=== PATIENT | male | born 1970 | race Two or more races ===

== ENCOUNTER 2018-01-27 08:21 | Inpatient (IN) | payer MEDICAID ==
[2018-01-24 11:51] LABS: ALANINE AMINOTRANSFERASE 24 U/L (12-78); ALBUMIN 3.8 g/dL (3.4-5.0); ANION GAP 10 mmol/L (5-15); CALCIUM 8.5 mg/dL (8.5-10.1); CHLORIDE 108 mmol/L (98-107); CREATININE 1.29 mg/dL (0.7-1.3)
[2018-01-24 11:52] LABS: MEAN CORPUSCULAR HEMOGLOBIN 33.3 pg (27.5-34.5); MEAN CORPUSCULAR HGB CONC 33.7 g/dL (33.2-36.2); MEAN CORPUSCULAR VOLUME 98.6 fL (81-97); MEAN PLATELET VOLUME 9.6 fL (7.4-10.4); PLATELET COUNT 171 x10^3/uL (130-400); RED BLOOD COUNT 4.75 x10^6/uL (4.38-5.82); RED CELL DISTRIBUTION WIDTH 16.1 % (9.4-14.8)
[2018-01-24 11:53] LABS: ALKALINE PHOSPHATASE 74 U/L (45-117); BILIRUBIN,TOTAL 2.2 mg/dL (0.2-1.0); TOTAL PROTEIN 6.8 g/dL (6.4-8.2)
[2018-01-24 12:22] LABS: MD YES
[2018-01-24 12:54] LABS: EOS#(MANUAL) 0.08 x10^3/uL (0.0-0.4); EOS% (MANUAL) 1 % (1-7); LYMPH#(MANUAL) 1.97 x10^3/uL (1-3.4); LYMPHS% (MANUAL) 24 % (22-44); MONOS#(MANUAL) 0.41 x10^3/uL (0.3-2.7); MONOS% (MANUAL) 5 % (2-9); SEG#(MANUAL) 5.74 x10^3/uL (1.8-6.8); SEGS% (MANUAL) 70 % (42-75)
[2018-01-24 12:55] LABS: <PLATELET ESTIMATE> ADEQUATE; <PLT MORPHOLOGY> NORMAL PLT MORPH; ANISOCYTOSIS 1+; ECHINOCYTES 1+
[2018-01-24 12:56] LABS: OVALOCYTES 2+
[~2018-01-27] VITALS: Ht 165.1 cm; Wt 103.9 kg
[~2018-01-27 08:21] MED LIST: ASPI-496 PO; CARV12.52 PO; FURO20TA3 PO; LISI-170 PO; METF500T17 PO; POTA10TA12 PO; RANI150T23 PO; SIMV10TA3 PO; SPIR25TA5 PO
[2018-01-27 08:53] VITALS: BP 109/79
[2018-01-27] MEDS ORDERED: SODIUM CHLORIDE 0.9% 1,000 ML IV SCH (09:01)
[2018-01-27] MEDS ORDERED: CEFAZOLIN PMX 1GM/50ML 50 ML IVPB ONE (09:30)
[2018-01-27] MEDS ORDERED: ONDANSETRON 2MG/ML, 2ML ONE (10:32)
[2018-01-27] MEDS ORDERED: SUCCINYLCHOLINE 20 MG/ML, 10ML ONE (10:32)
[2018-01-27] MEDS ORDERED: CEFAZOLIN 1,000 MG ONE (10:32)
[2018-01-27] MEDS ORDERED: FENTANYL PF 250 MCG/5ML ONE (12:50)
[2018-01-27] MEDS ORDERED: PROPOFOL 50 ML ONE ×2 (12:50→13:56)
[2018-01-27] MEDS ORDERED: MIDAZOLAM 1 MG/ML, 2ML ONE (12:50)
[2018-01-27] MEDS ORDERED: HOLD MEDICATION MC PRN (16:00)
[2018-01-27] MEDS ORDERED: ACETAMINOPHEN 325 MG TABLET PO PRN ×2 (16:00)
[2018-01-27] MEDS ORDERED: CEFAZOLIN PMX 1GM/50ML 50 ML IVPB SCH (16:00)
[2018-01-27] MEDS ORDERED: NALOXONE 0.4 MG/ML, 1ML ONE (16:28)
[2018-01-27] MEDS ORDERED: EPINEPHRINE 2 MG in SODIUM CHLORIDE 0.9% 248 ML IV PRN (16:30)
[2018-01-27] MEDS ORDERED: NALOXONE 0.4 MG/ML, 1ML IVPush ONE (17:00)
[2018-01-27] MEDS ORDERED: PROPOFOL 100 ML IV ONE (17:14)
[2018-01-27] MEDS ORDERED: PHENYLEPHRINE 10 MG/ML ONE (17:18)
[2018-01-27] MEDS ORDERED: EPINEPHRINE 4 MG in SODIUM CHLORIDE 0.9% 246 ML IV PRN (17:30)
[2018-01-27] MEDS ORDERED: PHENYLEPHRINE 10 MG in SODIUM CHLORIDE 0.9% 249 ML IV PRN (17:41)
[2018-01-27] MEDS: ALBUTEROL/IPRATROPIUM 2.5MG/0.5MG, 3 ML INLINE SCH ×2 (18:00→22:00)
[2018-01-27] MEDS ORDERED: DEXTROSE 4 GM TAB.CHEW PO PRN (18:00)
[2018-01-27] MEDS ORDERED: SENNOSIDES 8.8 MG/5 ML ORAL SOL NG PRN (18:00)
[2018-01-27] MEDS ORDERED: DEXTROSE 50%, 50ML SYRINGE IVPush PRN (18:00)
[2018-01-27] MEDS ORDERED: FENTANYL PF 100 MCG/2ML IVPush PRN (18:00)
[2018-01-27] MEDS ORDERED: LACTULOSE 20 GM/30 ML UDC NG PRN (18:00)
[2018-01-27] MEDS ORDERED: GLUCAGON 1 MG IM PRN (18:00)
[2018-01-27] MEDS ORDERED: BISACODYL 10 MG SUPP PR PRN (18:00)
[2018-01-27] MEDS ORDERED: PHARMACY MAY ADJ FOR RENAL FX MC SCH (18:00)
[2018-01-27] MEDS ORDERED: SENNA/DOCUSATE TABLET NG PRN (18:00)
[2018-01-27] MEDS ORDERED: LIDOCAINE-MPF 1%, 2ML ENDO PRN (18:00)
[2018-01-27 19:21] LABS: BASOPHILS # (AUTO) 0.03 x10^3/uL (0-0.1); BASOPHILS % (AUTO) 0 % (0-1); EOSINOPHILS % (AUTO) 1 % (1-7); LYMPHOCYTES # (AUTO) 1.29 x10^3/uL (1-3.4); LYMPHOCYTES % (AUTO) 12 % (22-44); MD NO; MEAN CORPUSCULAR HEMOGLOBIN 33.1 pg (27.5-34.5); MEAN CORPUSCULAR HGB CONC 33.5 g/dL (33.2-36.2); MEAN CORPUSCULAR VOLUME 98.6 fL (81-97); MEAN PLATELET VOLUME 9.4 fL (7.4-10.4); MONOCYTES % (AUTO) 6 % (2-9); NEUTROPHILS # (AUTO) 8.55 x10^3/uL (1.8-6.8); NEUTROPHILS % (AUTO) 81 % (42-75); PLATELET COUNT 143 x10^3/uL (130-400); RED BLOOD COUNT 4.71 x10^6/uL (4.38-5.82); RED CELL DISTRIBUTION WIDTH 15.9 % (9.4-14.8)
[2018-01-27 19:28] LABS: INTERNATIONAL NORMALIZED RATIO 1.39 (0.93-1.1); PROTHROMBIN TIME 14.5 Seconds (9.6-11.5)
[2018-01-27 19:29] LABS: ANION GAP 11 mmol/L (5-15); CALCIUM 7.4 mg/dL (8.5-10.1); CHLORIDE 110 mmol/L (98-107); CREATININE 1.71 mg/dL (0.7-1.3)
[2018-01-27 19:31] LABS: TRIGLYCERIDES 105 mg/dL (50-200)
[2018-01-27] MEDS: SODIUM CHLORIDE 0.9% 1,000 ML IV SCH (19:54)
[2018-01-27] MEDS: CEFAZOLIN 1,000 MG in SODIUM CHLORIDE 0.9% 50 ML IVPB SCH (19:58)
[2018-01-27] MEDS ORDERED: MAGNESIUM SULFATE PMX 2GM/50ML 50 ML IV ONE (20:00)
[2018-01-27] MEDS: NOREPINEPHRINE 4 MG in SODIUM CHLORIDE 0.9% 246 ML IV PRN (20:19)
[2018-01-27 20:36] LABS: HEMOGLOBIN A1C 6.4 % (4.2-6.3)
[2018-01-27 20:44] LABS: FREE T4 (FREE THYROXINE) 1.41 ng/dL (0.76-1.46)
[2018-01-27] MEDS ORDERED: CARVEDILOL 12.5 MG TABLET PO SCH (21:00)
[2018-01-27] MEDS ORDERED: metFORMIN 500 MG TABLET PO SCH (21:00)
[2018-01-27] MEDS ORDERED: FUROSEMIDE 20 MG TABLET PO SCH (21:00)
[2018-01-27] MEDS ORDERED: FAMOTIDINE 20 MG TABLET PO SCH (21:00)
[2018-01-27] MEDS ORDERED: LISINOPRIL 20 MG TABLET PO SCH (21:00)
[2018-01-27] MEDS: INSULIN REGULAR 100 UNITS/ML, 3ML VIAL SQ-INSULIN SCH (21:00)
[2018-01-27] MEDS: SODIUM CHLORIDE FLUSH 10ML SYR IVF SCH ×2 (21:00→21:52)
[2018-01-27] MEDS: FAMOTIDINE 20 MG/2 ML IV SCH (22:01)
[2018-01-27] MEDS: SIMVASTATIN 10 MG TABLET PO SCH (22:01)
[2018-01-27 22:50] LABS: MICROSCOPIC INDICATED
[2018-01-27 22:56] LABS: CULTURE INDICATED? NO
[2018-01-27] MEDS: PROPOFOL 100 ML IV PRN (23:52)
[2018-01-28] MEDS ORDERED: PHENYLEPHRINE 20 MG in SODIUM CHLORIDE 0.9% 248 ML IV PRN (00:30)
[2018-01-28] MEDS: CEFAZOLIN 1,000 MG in SODIUM CHLORIDE 0.9% 50 ML IVPB SCH (01:58)
[2018-01-28] MEDS: ALBUTEROL/IPRATROPIUM 2.5MG/0.5MG, 3 ML INLINE SCH ×7 (02:00→21:55)
[2018-01-28 04:16] LABS: BASOPHILS # (AUTO) 0.04 x10^3/uL (0-0.1); BASOPHILS % (AUTO) 0 % (0-1); EOSINOPHILS # (AUTO) 0.02 x10^3/uL (0-0.4); EOSINOPHILS % (AUTO) 0 % (1-7); LYMPHOCYTES # (AUTO) 1.39 x10^3/uL (1-3.4); LYMPHOCYTES % (AUTO) 9 % (22-44); MD NO; MEAN CORPUSCULAR HEMOGLOBIN 32.6 pg (27.5-34.5); MEAN CORPUSCULAR HGB CONC 33.3 g/dL (33.2-36.2); MEAN CORPUSCULAR VOLUME 97.8 fL (81-97); MEAN PLATELET VOLUME 9.5 fL (7.4-10.4); MONOCYTES # (AUTO) 0.81 x10^3/uL (0.2-0.8); MONOCYTES % (AUTO) 5 % (2-9); NEUTROPHILS % (AUTO) 86 % (42-75); PLATELET COUNT 123 x10^3/uL (130-400); RED BLOOD COUNT 4.41 x10^6/uL (4.38-5.82); RED CELL DISTRIBUTION WIDTH 15.3 % (9.4-14.8)
[2018-01-28 04:21] LABS: CALCIUM 7.8 mg/dL (8.5-10.1); CHOLESTEROL, TOTAL 57 mg/dL (140-239); CREATININE 1.79 mg/dL (0.7-1.3); TRIGLYCERIDES 98 mg/dL (50-200); VLDL CHOLESTEROL 20 mg/dL (0-25)
[2018-01-28 04:44] VITALS: BP 120/88
[2018-01-28 04:49] LABS: ANION GAP 17 mmol/L (5-15); CHLORIDE 107 mmol/L (98-107); CHOL/HDL RATIO 2.6; HDL CHOL % 39 % (26-37); HDL CHOLESTEROL (DIRECT) 22 mg/dL (40-60); LDL CHOLESTEROL,CALCULATED 15 mg/dL (54-169); LDL/HDL RATIO 0.7 (0.5-3.0)
[2018-01-28] MEDS: PROPOFOL 100 ML IV PRN ×4 (05:48→18:06)
[2018-01-28] MEDS: FAMOTIDINE 20 MG/2 ML IV SCH ×2 (05:57→18:10)
[2018-01-28] MEDS: INSULIN REGULAR 100 UNITS/ML, 3ML VIAL SQ-INSULIN SCH ×4 (07:00→21:00)
[2018-01-28] MEDS: SODIUM CHLORIDE FLUSH 10ML SYR IVF SCH ×3 (08:12→21:13)
[2018-01-28] MEDS ORDERED: FENTANYL PF 2,500 MCG in SODIUM CHLORIDE 0.9% 200 ML IV PRN (09:00)
[2018-01-28] MEDS: ASPIRIN 81 MG TABLET EC PO SCH (09:00)
[2018-01-28] MEDS ORDERED: KLOR PO SCH (09:00)
[2018-01-28] MEDS ORDERED: SPIRONOLACTONE 25 MG TABLET PO SCH (09:00)
[2018-01-28] MEDS ORDERED: MIDAZOLAM HCL 50 MG in SODIUM CHLORIDE 0.9% 240 ML IV PRN (10:30)
[2018-01-28] MEDS: NOREPINEPHRINE 4 MG in SODIUM CHLORIDE 0.9% 246 ML IV PRN (10:36)
[2018-01-28] MEDS ORDERED: LIDOCAINE 1%, 20ML ONE (11:36)
[2018-01-28] MEDS ORDERED: HEPARIN 1,000 UNITS/ML, 10ML ONE (11:36)
[2018-01-28] MEDS ORDERED: MIDAZOLAM 1 MG/ML, 5ML ONE (11:47)
[2018-01-28] MEDS ORDERED: HEPARIN 25,000 UNITS/500ML PMX 500 ML IV SCH (12:26)
[2018-01-28] MEDS ORDERED: HEPARIN 25,000 UNITS in DEXTROSE 10% 500 ML IV SCH (12:26)
[2018-01-28] MEDS ORDERED: HEPARIN 25,000 UNITS in DEXTROSE 20% 500 ML IV SCH (12:26)
[2018-01-28 14:07] LABS: PLATELET COUNT 106 x10^3/uL (130-400)
[2018-01-28 14:18] LABS: ANION GAP 9 mmol/L (5-15); CALCIUM 7.8 mg/dL (8.5-10.1); CHLORIDE 114 mmol/L (98-107); CREATININE 1.53 mg/dL (0.7-1.3); INTERNATIONAL NORMALIZED RATIO 1.69 (0.93-1.1); PROTHROMBIN TIME 17.6 Seconds (9.6-11.5)
[2018-01-28 14:22] LABS: TROPONIN I 0.555 ng/mL (0.000-0.045)
[2018-01-28] MEDS ORDERED: MAGNESIUM SULFATE 4 GM in SODIUM CHLORIDE 0.9% 100 ML IV ONE (15:30)
[2018-01-28] MEDS: SODIUM CHLORIDE 0.9% 1,000 ML IV SCH (15:40)
[2018-01-28] MEDS ORDERED: SODIUM CHLORIDE 0.9%, 250ML IVBOLUS ONE (16:30)
--- NOTE | 2018-01-28 18:10 | NUR ---
TF RECOMMENDATION IF NEEDED: Promote at 65 ml/hr on propofol; promote at 85 ml/hr off propofol Addendum: 01/28/18 at [address] Amended: Links added.
[2018-01-28] MEDS: SIMVASTATIN 10 MG TABLET PO SCH (21:00)
[2018-01-29] MEDS: PROPOFOL 100 ML IV PRN ×5 (00:06→21:19)
[2018-01-29] MEDS: ALBUTEROL/IPRATROPIUM 2.5MG/0.5MG, 3 ML INLINE SCH ×6 (02:20→22:34)
[2018-01-29 05:14] LABS: MEAN CORPUSCULAR HEMOGLOBIN 33.2 pg (27.5-34.5); MEAN CORPUSCULAR HGB CONC 33.8 g/dL (33.2-36.2); MEAN CORPUSCULAR VOLUME 98.1 fL (81-97); RED BLOOD COUNT 3.32 x10^6/uL (4.38-5.82); RED CELL DISTRIBUTION WIDTH 15.9 % (9.4-14.8)
[2018-01-29 05:31] LABS: ANION GAP 9 mmol/L (5-15); CALCIUM 6.9 mg/dL (8.5-10.1); CHLORIDE 112 mmol/L (98-107)
[2018-01-29 05:37] LABS: CREATININE 1.31 mg/dL (0.7-1.3)
[2018-01-29 05:46] LABS: BASOPHILS # (AUTO) 0.05 x10^3/uL (0-0.1); BASOPHILS % (AUTO) 1 % (0-1); EOSINOPHILS # (AUTO) 0.26 x10^3/uL (0-0.4); EOSINOPHILS % (AUTO) 3 % (1-7); LYMPHOCYTES # (AUTO) 1.08 x10^3/uL (1-3.4); LYMPHOCYTES % (AUTO) 11 % (22-44); MD MORPH REVIEW ONLY; MEAN PLATELET VOLUME 9.7 fL (7.4-10.4); MONOCYTES # (AUTO) 0.77 x10^3/uL (0.2-0.8); MONOCYTES % (AUTO) 8 % (2-9); NEUTROPHILS # (AUTO) 7.31 x10^3/uL (1.8-6.8); NEUTROPHILS % (AUTO) 77 % (42-75); PLATELET COUNT 84 x10^3/uL (130-400)
[2018-01-29 05:52] LABS: <PLATELET ESTIMATE> DECREASED; <PLT MORPHOLOGY> NORMAL PLT MORPH; ANISOCYTOSIS 1+; ECHINOCYTES 1+; OVALOCYTES 2+
[2018-01-29] MEDS: FAMOTIDINE 20 MG/2 ML IV SCH ×2 (06:18→19:23)
[2018-01-29] MEDS: INSULIN REGULAR 100 UNITS/ML, 3ML VIAL SQ-INSULIN SCH ×4 (07:00→20:20)
[2018-01-29] MEDS ORDERED: CEFAZOLIN 2,000 MG in SODIUM CHLORIDE 0.9% 50 ML IV STA (07:12)
[2018-01-29] MEDS ORDERED: CALCIUM CHLORIDE 13.6 MEQ in SODIUM CHLORIDE 0.9% 100 ML IV ONE (08:00)
[2018-01-29] MEDS ORDERED: FUROSEMIDE 20 MG/2 ML IV ONE (09:00)
[2018-01-29] MEDS: ASPIRIN 81 MG TABLET EC PO SCH (09:26)
[2018-01-29] MEDS: POTASSIUM CHLORIDE 10% 40 MEQ/30 ML UDC PO SCH ×2 (09:26→20:12)
[2018-01-29] MEDS: SODIUM CHLORIDE 0.9% 1,000 ML IV SCH (09:27)
[2018-01-29] MEDS: NOREPINEPHRINE 4 MG in SODIUM CHLORIDE 0.9% 246 ML IV PRN (12:13)
[2018-01-29] MEDS: SIMVASTATIN 10 MG TABLET PO SCH (20:12)
[2018-01-30] MEDS: ALBUTEROL/IPRATROPIUM 2.5MG/0.5MG, 3 ML INLINE SCH ×2 (03:03→06:00)
[2018-01-30] MEDS: PROPOFOL 100 ML IV PRN (03:38)
[2018-01-30 04:39] LABS: MEAN CORPUSCULAR HEMOGLOBIN 32.9 pg (27.5-34.5); MEAN CORPUSCULAR HGB CONC 33.4 g/dL (33.2-36.2); MEAN CORPUSCULAR VOLUME 98.6 fL (81-97); RED BLOOD COUNT 3.36 x10^6/uL (4.38-5.82); RED CELL DISTRIBUTION WIDTH 15.8 % (9.4-14.8)
[2018-01-30 04:57] LABS: ANION GAP 8 mmol/L (5-15); CALCIUM 7.5 mg/dL (8.5-10.1); CHLORIDE 114 mmol/L (98-107); CREATININE 0.94 mg/dL (0.7-1.3); TRIGLYCERIDES 148 mg/dL (50-200)
[2018-01-30 05:03] LABS: TROPONIN I 0.152 ng/mL (0.000-0.045)
[2018-01-30 05:06] LABS: BASOPHILS # (AUTO) 0.04 x10^3/uL (0-0.1); BASOPHILS % (AUTO) 0 % (0-1); EOSINOPHILS # (AUTO) 0.46 x10^3/uL (0-0.4); EOSINOPHILS % (AUTO) 5 % (1-7); LYMPHOCYTES # (AUTO) 1.13 x10^3/uL (1-3.4); LYMPHOCYTES % (AUTO) 11 % (22-44); MD SCAN; MEAN PLATELET VOLUME 9.6 fL (7.4-10.4); MONOCYTES # (AUTO) 0.98 x10^3/uL (0.2-0.8); MONOCYTES % (AUTO) 10 % (2-9); NEUTROPHILS # (AUTO) 7.32 x10^3/uL (1.8-6.8); NEUTROPHILS % (AUTO) 74 % (42-75); PLATELET COUNT 86 x10^3/uL (130-400)
[2018-01-30] MEDS: FAMOTIDINE 20 MG/2 ML IV SCH ×2 (06:19→17:24)
[2018-01-30] MEDS: SODIUM CHLORIDE 0.9% 1,000 ML IV SCH (06:21)
[2018-01-30] MEDS: INSULIN REGULAR 100 UNITS/ML, 3ML VIAL SQ-INSULIN SCH ×4 (07:00→20:50)
[2018-01-30] MEDS ORDERED: MAGNESIUM SULFATE PMX 4GM/100M 100 ML IV ONE (08:00)
[2018-01-30] MEDS ORDERED: CALCIUM CHLORIDE 13.6 MEQ in SODIUM CHLORIDE 0.9% 100 ML IV ONE (08:00)
[2018-01-30] MEDS: CALCIUM CARBONATE 500 MG TAB.CHEW PO SCH ×3 (08:00→20:45)
[2018-01-30] MEDS ORDERED: RACEPINEPHRINE INH 2.25%, 0.5ML ONE (08:57)
[2018-01-30] MEDS: ASPIRIN 81 MG TABLET EC PO SCH (09:00)
[2018-01-30 12:11] LABS: HIT RESULT NEGATIVE (NEGATIVE)
[2018-01-30] MEDS ORDERED: ALBUTEROL/IPRATROPIUM 2.5MG/0.5MG, 3 ML NPPB PRN (12:30)
[2018-01-30] MEDS: SIMVASTATIN 10 MG TABLET PO SCH (20:46)
[2018-01-30] MEDS: ALBUTEROL/IPRATROPIUM 2.5MG/0.5MG, 3 ML NPPB SCH (20:50)
[2018-01-31 04:23] LABS: BASOPHILS # (AUTO) 0.18 x10^3/uL (0-0.1); BASOPHILS % (AUTO) 2 % (0-1); EOSINOPHILS # (AUTO) 0.39 x10^3/uL (0-0.4); EOSINOPHILS % (AUTO) 3 % (1-7); LYMPHOCYTES # (AUTO) 0.83 x10^3/uL (1-3.4); LYMPHOCYTES % (AUTO) 7 % (22-44); MD NO; MEAN CORPUSCULAR HEMOGLOBIN 33.1 pg (27.5-34.5); MEAN CORPUSCULAR HGB CONC 33.5 g/dL (33.2-36.2); MEAN CORPUSCULAR VOLUME 98.6 fL (81-97); MEAN PLATELET VOLUME 9.2 fL (7.4-10.4); MONOCYTES # (AUTO) 1.24 x10^3/uL (0.2-0.8); MONOCYTES % (AUTO) 11 % (2-9); NEUTROPHILS # (AUTO) 8.99 x10^3/uL (1.8-6.8); NEUTROPHILS % (AUTO) 77 % (42-75); O2 FLOW ROOM AIR L/min; PLATELET COUNT 112 x10^3/uL (130-400); RED BLOOD COUNT 3.31 x10^6/uL (4.38-5.82); RED CELL DISTRIBUTION WIDTH 15.4 % (9.4-14.8)
[2018-01-31 04:31] LABS: ANION GAP 9 mmol/L (5-15); CALCIUM 7.9 mg/dL (8.5-10.1); CHLORIDE 110 mmol/L (98-107); CREATININE 0.79 mg/dL (0.7-1.3)
[2018-01-31 04:46] LABS: TROPONIN I 0.126 ng/mL (0.000-0.045)
[2018-01-31] MEDS: FAMOTIDINE 20 MG/2 ML IV SCH ×2 (05:02→17:34)
[2018-01-31] MEDS: CALCIUM CARBONATE 500 MG TAB.CHEW PO SCH ×4 (05:02→20:42)
[2018-01-31] MEDS: SODIUM CHLORIDE 0.9% 1,000 ML IV SCH (05:02)
[2018-01-31] MEDS: INSULIN REGULAR 100 UNITS/ML, 3ML VIAL SQ-INSULIN SCH ×4 (06:36→20:47)
[2018-01-31] MEDS ORDERED: MAGNESIUM SULFATE 4 GM in SODIUM CHLORIDE 0.9% 100 ML IV ONE (09:00)
[2018-01-31] MEDS: ASPIRIN 81 MG TABLET EC PO SCH (09:26)
[2018-01-31] MEDS: FUROSEMIDE 10 MG/ML ORAL SOL PO SCH (09:27)
[2018-01-31] MEDS ORDERED: ERGOCALCIFEROL 50,000 UNIT CAPSULE PO SCH (11:30)
[2018-01-31] MEDS: ALBUTEROL/IPRATROPIUM 2.5MG/0.5MG, 3 ML NPPB SCH ×2 (12:22→21:46)
[2018-01-31] MEDS: SIMVASTATIN 10 MG TABLET PO SCH (20:43)
[2018-02-01] MEDS: CALCIUM CARBONATE 500 MG TAB.CHEW PO SCH ×4 (02:00→21:45)
[2018-02-01 05:08] LABS: BASOPHILS # (AUTO) 0.05 x10^3/uL (0-0.1); BASOPHILS % (AUTO) 1 % (0-1); EOSINOPHILS # (AUTO) 0.22 x10^3/uL (0-0.4); EOSINOPHILS % (AUTO) 2 % (1-7); LYMPHOCYTES # (AUTO) 0.66 x10^3/uL (1-3.4); LYMPHOCYTES % (AUTO) 6 % (22-44); MD NO; MEAN CORPUSCULAR HEMOGLOBIN 33.2 pg (27.5-34.5); MEAN CORPUSCULAR HGB CONC 33.7 g/dL (33.2-36.2); MEAN CORPUSCULAR VOLUME 98.6 fL (81-97); MEAN PLATELET VOLUME 9.3 fL (7.4-10.4); MONOCYTES # (AUTO) 1.12 x10^3/uL (0.2-0.8); MONOCYTES % (AUTO) 10 % (2-9); NEUTROPHILS # (AUTO) 9.65 x10^3/uL (1.8-6.8); NEUTROPHILS % (AUTO) 83 % (42-75); PLATELET COUNT 124 x10^3/uL (130-400); RED BLOOD COUNT 3.35 x10^6/uL (4.38-5.82); RED CELL DISTRIBUTION WIDTH 15.6 % (9.4-14.8)
[2018-02-01 05:20] LABS: CHLORIDE 105 mmol/L (98-107)
[2018-02-01 05:32] LABS: ALANINE AMINOTRANSFERASE 87 U/L (12-78); ALBUMIN 2.9 g/dL (3.4-5.0); ALKALINE PHOSPHATASE 70 U/L (45-117); ANION GAP 9 mmol/L (5-15); CALCIUM 8.3 mg/dL (8.5-10.1); CREATININE 0.64 mg/dL (0.7-1.3); TOTAL PROTEIN 6.1 g/dL (6.4-8.2); TROPONIN I 0.064 ng/mL (0.000-0.045)
[2018-02-01] MEDS: FAMOTIDINE 20 MG/2 ML IV SCH ×2 (05:58→18:05)
[2018-02-01] MEDS: INSULIN REGULAR 100 UNITS/ML, 3ML VIAL SQ-INSULIN SCH ×4 (06:46→21:46)
[2018-02-01] MEDS ORDERED: FUROSEMIDE 40 MG TABLET ONE (08:15)
[2018-02-01] MEDS: ASPIRIN 81 MG TABLET EC PO SCH (08:35)
[2018-02-01] MEDS: LISINOPRIL 5 MG TABLET PO SCH (08:36)
[2018-02-01] MEDS: FUROSEMIDE 10 MG/ML ORAL SOL PO SCH (08:36)
[2018-02-01] MEDS ORDERED: POTASSIUM CHLORIDE 20 MEQ TAB.ER.PRT ONE (08:49)
[2018-02-01] MEDS ORDERED: MAGNESIUM SULFATE PMX 4GM/100M 100 ML IV ONE (09:00)
[2018-02-01] MEDS ORDERED: POTASSIUM CHLORIDE 20 MEQ TAB.ER.PRT PO ONE (09:00)
[2018-02-01] MEDS: ALBUTEROL/IPRATROPIUM 2.5MG/0.5MG, 3 ML NPPB SCH ×2 (10:50→19:00)
[2018-02-01 15:47] VITALS: BP 111/78
[2018-02-01 19:27] VITALS: BP 107/73
[2018-02-01] MEDS: SIMVASTATIN 10 MG TABLET PO SCH (21:45)
[2018-02-02 01:27] VITALS: BP 113/77
[2018-02-02] MEDS: CALCIUM CARBONATE 500 MG TAB.CHEW PO SCH (02:43)
[2018-02-02 05:23] LABS: ALBUMIN 2.6 g/dL (3.4-5.0); ANION GAP 6 mmol/L (5-15); ANION GAP 7 mmol/L (5-15); CALCIUM 7.9 mg/dL (8.5-10.1); CHLORIDE 107 mmol/L (98-107); CREATININE 0.67 mg/dL (0.7-1.3)
[2018-02-02 05:24] LABS: TRIGLYCERIDES 80 mg/dL (50-200)
[2018-02-02 05:25] LABS: BASOPHILS # (AUTO) 0.03 x10^3/uL (0-0.1); BASOPHILS % (AUTO) 0 % (0-1); EOSINOPHILS # (AUTO) 0.59 x10^3/uL (0-0.4); EOSINOPHILS % (AUTO) 7 % (1-7); LYMPHOCYTES # (AUTO) 1.16 x10^3/uL (1-3.4); LYMPHOCYTES % (AUTO) 13 % (22-44); MD NO; MEAN CORPUSCULAR HEMOGLOBIN 33.1 pg (27.5-34.5); MEAN CORPUSCULAR HGB CONC 33.5 g/dL (33.2-36.2); MEAN CORPUSCULAR VOLUME 98.8 fL (81-97); MEAN PLATELET VOLUME 9.2 fL (7.4-10.4); MONOCYTES # (AUTO) 1.18 x10^3/uL (0.2-0.8); MONOCYTES % (AUTO) 13 % (2-9); NEUTROPHILS # (AUTO) 5.98 x10^3/uL (1.8-6.8); NEUTROPHILS % (AUTO) 67 % (42-75); PLATELET COUNT 160 x10^3/uL (130-400); RED BLOOD COUNT 3.25 x10^6/uL (4.38-5.82); RED CELL DISTRIBUTION WIDTH 15.2 % (9.4-14.8)
[2018-02-02 05:29] LABS: ALANINE AMINOTRANSFERASE 67 U/L (12-78); ALKALINE PHOSPHATASE 76 U/L (45-117); BILIRUBIN,TOTAL 1.6 mg/dL (0.2-1.0); CREATININE 0.63 mg/dL (0.7-1.3); TOTAL PROTEIN 5.9 g/dL (6.4-8.2); TROPONIN I 0.049 ng/mL (0.000-0.045)
[2018-02-02] MEDS ORDERED: POTASSIUM CHLORIDE 20 MEQ TAB.ER.PRT PO ONE (06:00)
[2018-02-02] MEDS ORDERED: MAGNESIUM SULFATE PMX 2GM/50ML 50 ML IV ONE (06:00)
[2018-02-02] MEDS: FAMOTIDINE 20 MG/2 ML IV SCH (06:07)
[2018-02-02 06:41] VITALS: BP 113/78
[2018-02-02] MEDS: INSULIN REGULAR 100 UNITS/ML, 3ML VIAL SQ-INSULIN SCH ×4 (07:00→20:06)
[2018-02-02] MEDS ORDERED: FUROSEMIDE 40 MG TABLET ONE (08:58)
[2018-02-02] MEDS: FUROSEMIDE 10 MG/ML ORAL SOL PO SCH (09:00)
[2018-02-02] MEDS: ASPIRIN 81 MG TABLET EC PO SCH (09:05)
[2018-02-02] MEDS: LISINOPRIL 5 MG TABLET PO SCH (09:06)
[2018-02-02 12:37] VITALS: BP 118/78
[2018-02-02] MEDS: CARVEDILOL 3.125 MG TABLET PO SCH (18:02)
[2018-02-02 19:53] VITALS: BP 118/80
[2018-02-02] MEDS: FAMOTIDINE 20 MG TABLET PO SCH (20:44)
[2018-02-02] MEDS: SIMVASTATIN 10 MG TABLET PO SCH (20:44)
[2018-02-03 02:38] VITALS: BP 112/79
[2018-02-03 05:01] LABS: BASOPHILS # (AUTO) 0.06 x10^3/uL (0-0.1); BASOPHILS % (AUTO) 1 % (0-1); EOSINOPHILS # (AUTO) 0.57 x10^3/uL (0-0.4); EOSINOPHILS % (AUTO) 6 % (1-7); LYMPHOCYTES # (AUTO) 1.28 x10^3/uL (1-3.4); LYMPHOCYTES % (AUTO) 13 % (22-44); MD NO; MEAN CORPUSCULAR HEMOGLOBIN 33.1 pg (27.5-34.5); MEAN CORPUSCULAR HGB CONC 33.7 g/dL (33.2-36.2); MEAN CORPUSCULAR VOLUME 98.2 fL (81-97); MEAN PLATELET VOLUME 8.6 fL (7.4-10.4); MONOCYTES # (AUTO) 1.07 x10^3/uL (0.2-0.8); MONOCYTES % (AUTO) 11 % (2-9); NEUTROPHILS # (AUTO) 6.51 x10^3/uL (1.8-6.8); NEUTROPHILS % (AUTO) 69 % (42-75); PLATELET COUNT 218 x10^3/uL (130-400); RED BLOOD COUNT 3.44 x10^6/uL (4.38-5.82); RED CELL DISTRIBUTION WIDTH 15.1 % (9.4-14.8)
[2018-02-03 05:12] LABS: ALBUMIN 2.5 g/dL (3.4-5.0); ANION GAP 8 mmol/L (5-15); CALCIUM 8.2 mg/dL (8.5-10.1); CHLORIDE 106 mmol/L (98-107)
[2018-02-03 05:18] LABS: ALANINE AMINOTRANSFERASE 56 U/L (12-78); ALKALINE PHOSPHATASE 91 U/L (45-117); BILIRUBIN,TOTAL 1.7 mg/dL (0.2-1.0); CREATININE 0.67 mg/dL (0.7-1.3); TROPONIN I 0.762 ng/mL (0.000-0.045)
[2018-02-03] MEDS ORDERED: MAGNESIUM SULFATE PMX 2GM/50ML 50 ML IV ONE (05:30)
[2018-02-03 05:50] VITALS: BP 115/85
[2018-02-03] MEDS: CARVEDILOL 3.125 MG TABLET PO SCH (05:52)
[2018-02-03] MEDS: INSULIN REGULAR 100 UNITS/ML, 3ML VIAL SQ-INSULIN SCH ×2 (07:00→11:00)
[2018-02-03 07:10] VITALS: BP 103/81
[2018-02-03] MEDS: FUROSEMIDE 10 MG/ML ORAL SOL PO SCH (09:00)
[2018-02-03] MEDS ORDERED: FUROSEMIDE 40 MG TABLET ONE (09:28)
[2018-02-03] MEDS: LISINOPRIL 5 MG TABLET PO SCH (09:34)
[2018-02-03] MEDS: FAMOTIDINE 20 MG TABLET PO SCH (09:34)
[2018-02-03] MEDS: ASPIRIN 81 MG TABLET EC PO SCH (09:34)
[2018-02-03] MEDS ORDERED: LISI5TAB7 PO (10:36)
[2018-02-03] MEDS ORDERED: FURO20TA3 PO (10:36)
[2018-02-03] MEDS ORDERED: CARV3.1212 PO (10:36)
[2018-02-03] MEDS ORDERED: MAGNESIUM OXIDE 400 MG TABLET PO ONE (13:00)
[2018-02-03 13:05] VITALS: BP 107/74
== END 2018-02-03 16:55 | disposition home or self-care (01) | DRG 215 ==
LOC: CACL 08:21 → ORIP 15:41 → CCU 16:53 → 5SO 02-01 15:43 → DCLOUNGE 02-03 16:20
PROVIDERS: ADMIT Internal Medicine Cardiovascular Disease; ATTEND Internal Medicine Cardiovascular Disease
PROC: 0JPT0PZ Removal of Cardiac Rhythm Related Device from Trunk Subcutaneous Tissue and Fascia, Open Approach (ICD-10-PCS; 2018-01-27)
PROC: 0JH609Z Insertion of Cardiac Resynchronization Defibrillator Pulse Generator into Chest Subcutaneous Tissue and Fascia, Open Approach (ICD-10-PCS; 2018-01-27)
PROC: 02H43KZ Insertion of Defibrillator Lead into Coronary Vein, Percutaneous Approach (ICD-10-PCS; 2018-01-27)
PROC: 02H63KZ Insertion of Defibrillator Lead into Right Atrium, Percutaneous Approach (ICD-10-PCS; 2018-01-27)
PROC: 0T9B70Z Drainage of Bladder with Drainage Device, Via Natural or Artificial Opening (ICD-10-PCS; 2018-01-27)
PROC: 5A1945Z Respiratory Ventilation, 24-96 Consecutive Hours (ICD-10-PCS; 2018-01-27)
PROC: 0BH17EZ Insertion of Endotracheal Airway into Trachea, Via Natural or Artificial Opening (ICD-10-PCS; 2018-01-27)
PROC: 4A023N7 Measurement of Cardiac Sampling and Pressure, Left Heart, Percutaneous Approach (ICD-10-PCS; principal; 2018-01-28)
PROC: 02HA3RZ Insertion of Short-term External Heart Assist System into Heart, Percutaneous Approach (ICD-10-PCS; 2018-01-28)
PROC: 5A0221D Assistance with Cardiac Output using Impeller Pump, Continuous (ICD-10-PCS; 2018-01-28)
PROC: 02WAXRZ Revision of Short-term External Heart Assist System in Heart, External Approach (ICD-10-PCS; 2018-01-28)
PROC: B41F1ZZ Fluoroscopy of Right Lower Extremity Arteries using Low Osmolar Contrast (ICD-10-PCS; 2018-01-28)
PROC: 06HN33Z Insertion of Infusion Device into Left Femoral Vein, Percutaneous Approach (ICD-10-PCS; 2018-01-28)
PROC: 02PA3RZ Removal of Short-term External Heart Assist System from Heart, Percutaneous Approach (ICD-10-PCS; 2018-01-29)
PROC: 5A09357 Assistance with Respiratory Ventilation, Less than 24 Consecutive Hours, Continuous Positive Airway Pressure (ICD-10-PCS; 2018-02-02)
PROC: 5A09357 Assistance with Respiratory Ventilation, Less than 24 Consecutive Hours, Continuous Positive Airway Pressure (ICD-10-PCS; 2018-02-03)
DX: R57.0 Cardiogenic shock (principal); G93.41 Metabolic encephalopathy; N17.0 Acute kidney failure with tubular necrosis; I50.23 Acute on chronic systolic (congestive) heart failure; J96.21 Acute and chronic respiratory failure with hypoxia; E87.4 Mixed disorder of acid-base balance; J98.11 Atelectasis; N25.81 Secondary hyperparathyroidism of renal origin; Z99.11 Dependence on respirator [ventilator] status; I42.9 Cardiomyopathy, unspecified; I44.7 Left bundle-branch block, unspecified; D69.6 Thrombocytopenia, unspecified; E11.9 Type 2 diabetes mellitus without complications; E55.9 Vitamin D deficiency, unspecified; E66.9 Obesity, unspecified; E78.5 Hyperlipidemia, unspecified; E87.5 Hyperkalemia; I11.0 Hypertensive heart disease with heart failure; Z87.891 Personal history of nicotine dependence; Z95.810 Presence of automatic (implantable) cardiac defibrillator; Z99.81 Dependence on supplemental oxygen
CPT/HCPCS: 33225; 33241; 33249; 33990; 36415; 36600; 74018; J3490; J7620; 70450; 71045; 71046; 80048; 80053; 80061; 81001; 82306; 82330; 82550; 82607; 82803; 82962; 83036; 83605; 83735; 83880; 83970; 84100; 84439; 84443; 84478; 84484; 85014; 85018; 85025; 85049; 85347; 85610; 85730; 86022; 87040; 87070; 87081; 87205; 93005; 93308; 94002; 94003; 94640; 99156; C1760; C1769; C1779; C1887; C1892; C1894; G0378; J0690; J1644; J1815; J2250; J2310; J2405; J2704; J3010; J3475; C1882; C1900; J0330; J1940; J2370; J7030; J7050; Q9967

== ENCOUNTER 2018-09-22 20:06 | Inpatient (IN) | payer MEDICAID ==
[~2018-09-22] VITALS: Ht 165.1 cm; Wt 107.0 kg
[~2018-09-22 20:06] MED LIST changes: +CARV3.1212 PO; +LISI5TAB7 PO; +RANI-467 PO; -RANI150T23 PO
[2018-09-22 21:20] LABS: BASOPHILS # (AUTO) 0.05 x10^3/uL (0-0.1); BASOPHILS % (AUTO) 1 % (0-1); EOSINOPHILS # (AUTO) 0.53 x10^3/uL (0-0.4); EOSINOPHILS % (AUTO) 9 % (1-7); LYMPHOCYTES # (AUTO) 1.25 x10^3/uL (1-3.4); LYMPHOCYTES % (AUTO) 22 % (22-44); MD NO; MEAN CORPUSCULAR HEMOGLOBIN 32.7 pg (27.5-34.5); MEAN CORPUSCULAR HGB CONC 32.2 g/dL (33.2-36.2); MEAN CORPUSCULAR VOLUME 101.4 fL (81-97); MEAN PLATELET VOLUME 8.9 fL (7.4-10.4); MONOCYTES # (AUTO) 0.28 x10^3/uL (0.2-0.8); MONOCYTES % (AUTO) 5 % (2-9); NEUTROPHILS # (AUTO) 3.73 x10^3/uL (1.8-6.8); NEUTROPHILS % (AUTO) 64 % (42-75); PLATELET COUNT 166 x10^3/uL (130-400); RED BLOOD COUNT 4.41 x10^6/uL (4.38-5.82)
[2018-09-22 21:30] LABS: ALANINE AMINOTRANSFERASE 22 U/L (12-78); ALBUMIN 2.8 g/dL (3.4-5.0); ANION GAP 8 mmol/L (5-15); CALCIUM 8.4 mg/dL (8.5-10.1); CHLORIDE 111 mmol/L (98-107); CREATININE 1.15 mg/dL (0.7-1.3)
[2018-09-22 21:35] LABS: ALKALINE PHOSPHATASE 106 U/L (45-117); BILIRUBIN,TOTAL 2.4 mg/dL (0.2-1.0); TOTAL PROTEIN 5.7 g/dL (6.4-8.2); TROPONIN I 0.042 ng/mL (0.000-0.045)
[2018-09-22] MEDS ORDERED: FUROSEMIDE 40 MG/4 ML ONE (21:57)
[2018-09-22] MEDS ORDERED: FUROSEMIDE 40 MG/4 ML IV ONE (22:00)
--- NOTE | 2018-09-22 22:05 | NUR ---
Gave report to jaja on tele; covered patients history, recent assessment; and poc. Awaiting for transfer to be seen by hospitalist
[2018-09-22 22:34] VITALS: BP 109/84
[2018-09-22] MEDS ORDERED: CARV12.52 PO (23:03)
[2018-09-22] MEDS ORDERED: LISI-170 PO (23:03)
[2018-09-23] MEDS ORDERED: DOCUSATE 100 MG CAPSULE PO PRN
[2018-09-23] MEDS ORDERED: hydrALAzine 20 MG/ML, 1ML IVPush PRN
[2018-09-23] MEDS ORDERED: ONDANSETRON ODT 4 MG PO PRN
[2018-09-23] MEDS ORDERED: ACETAMINOPHEN 325 MG TABLET PO PRN
[2018-09-23] MEDS ORDERED: LIDODERM 5% PATCH TD PRN
[2018-09-23] MEDS ORDERED: TEMAZEPAM 15 MG CAPSULE PO PRN
[2018-09-23] MEDS ORDERED: ENOXAPARIN 40 MG/0.4 ML SQ SCH
[2018-09-23] MEDS: SIMVASTATIN 10 MG TABLET PO SCH ×2 (00:29→21:06)
[2018-09-23 00:54] VITALS: BP 98/72
[2018-09-23 01:23] LABS: TROPONIN I 0.031 ng/mL (0.000-0.045)
[2018-09-23 05:32] LABS: BASOPHILS # (AUTO) 0.08 x10^3/uL (0-0.1); BASOPHILS % (AUTO) 1 % (0-1); EOSINOPHILS # (AUTO) 0.62 x10^3/uL (0-0.4); EOSINOPHILS % (AUTO) 9 % (1-7); LYMPHOCYTES # (AUTO) 1.65 x10^3/uL (1-3.4); LYMPHOCYTES % (AUTO) 25 % (22-44); MD NO; MEAN CORPUSCULAR HEMOGLOBIN 32.7 pg (27.5-34.5); MEAN CORPUSCULAR HGB CONC 32.5 g/dL (33.2-36.2); MEAN CORPUSCULAR VOLUME 100.9 fL (81-97); MONOCYTES # (AUTO) 0.45 x10^3/uL (0.2-0.8); MONOCYTES % (AUTO) 7 % (2-9); NEUTROPHILS # (AUTO) 3.78 x10^3/uL (1.8-6.8); NEUTROPHILS % (AUTO) 57 % (42-75); PLATELET COUNT 169 x10^3/uL (130-400); RED BLOOD COUNT 4.62 x10^6/uL (4.38-5.82); RED CELL DISTRIBUTION WIDTH 16.4 % (9.4-14.8)
[2018-09-23 05:45] LABS: ANION GAP 8 mmol/L (5-15); CALCIUM 8.6 mg/dL (8.5-10.1); CHLORIDE 111 mmol/L (98-107)
[2018-09-23 05:49] LABS: CREATININE 1.26 mg/dL (0.7-1.3); TROPONIN I 0.038 ng/mL (0.000-0.045)
[2018-09-23] MEDS: FUROSEMIDE 40 MG/4 ML IV SCH ×2 (06:25→17:11)
[2018-09-23 06:45] VITALS: BP 105/74
[2018-09-23] MEDS: ALBUTEROL/IPRATROPIUM 2.5MG/0.5MG, 3 ML NPPB SCH ×2 (07:15→20:39)
[2018-09-23] MEDS: ASPIRIN 81 MG TABLET EC PO SCH (08:30)
[2018-09-23] MEDS: POTASSIUM CHLORIDE 10 MEQ TABLET.ER PO SCH (08:30)
[2018-09-23] MEDS: FAMOTIDINE 20 MG TABLET PO SCH ×2 (08:30→21:06)
[2018-09-23] MEDS: SPIRONOLACTONE 25 MG TABLET PO SCH (08:30)
[2018-09-23] MEDS: CARVEDILOL 12.5 MG TABLET PO SCH ×2 (08:30→21:07)
[2018-09-23] MEDS: LISINOPRIL 20 MG TABLET PO SCH ×2 (08:30→21:07)
[2018-09-23] MEDS ORDERED: metFORMIN 500 MG TABLET PO SCH (09:00)
[2018-09-23] MEDS: INSULIN LISPRO 100 UNITS/ML, PEN SQ-INSULIN SCH ×3 (11:17→21:00)
[2018-09-23 12:00] LABS: HEMOGLOBIN A1C 6.1 % (4.2-6.3)
[2018-09-23 14:08] VITALS: BP 115/81
[2018-09-23 17:10] VITALS: BP 107/80
[2018-09-23] MEDS: ENOXAPARIN 30 MG/0.3 ML SQ SCH (17:11)
[2018-09-23 19:32] VITALS: BP 110/80
[2018-09-23 21:05] VITALS: BP 111/78
[2018-09-24 00:41] VITALS: BP 114/83
[2018-09-24 05:23] LABS: BASOPHILS # (AUTO) 0.04 x10^3/uL (0-0.1); BASOPHILS % (AUTO) 1 % (0-1); EOSINOPHILS # (AUTO) 0.47 x10^3/uL (0-0.4); EOSINOPHILS % (AUTO) 9 % (1-7); LYMPHOCYTES # (AUTO) 1.38 x10^3/uL (1-3.4); LYMPHOCYTES % (AUTO) 27 % (22-44); MD NO; MEAN CORPUSCULAR HEMOGLOBIN 31.7 pg (27.5-34.5); MEAN CORPUSCULAR HGB CONC 31.5 g/dL (33.2-36.2); MEAN CORPUSCULAR VOLUME 100.6 fL (81-97); MONOCYTES # (AUTO) 0.27 x10^3/uL (0.2-0.8); MONOCYTES % (AUTO) 5 % (2-9); NEUTROPHILS # (AUTO) 2.99 x10^3/uL (1.8-6.8); NEUTROPHILS % (AUTO) 58 % (42-75); PLATELET COUNT 161 x10^3/uL (130-400); RED BLOOD COUNT 4.23 x10^6/uL (4.38-5.82); RED CELL DISTRIBUTION WIDTH 16.8 % (9.4-14.8)
[2018-09-24 05:26] LABS: ALBUMIN 2.9 g/dL (3.4-5.0); CHLORIDE 110 mmol/L (98-107)
[2018-09-24 05:32] LABS: ALANINE AMINOTRANSFERASE 20 U/L (12-78); ALKALINE PHOSPHATASE 104 U/L (45-117); ANION GAP 8 mmol/L (5-15); BILIRUBIN,TOTAL 1.9 mg/dL (0.2-1.0); CALCIUM 8.3 mg/dL (8.5-10.1); TOTAL PROTEIN 5.8 g/dL (6.4-8.2)
[2018-09-24] MEDS: ENOXAPARIN 30 MG/0.3 ML SQ SCH ×2 (06:14→17:17)
[2018-09-24] MEDS: FUROSEMIDE 40 MG/4 ML IV SCH ×2 (06:14→17:17)
[2018-09-24 06:45] VITALS: BP_SYST 102; BP_DIAS 47; BP_DIAS 72
[2018-09-24] MEDS: INSULIN LISPRO 100 UNITS/ML, PEN SQ-INSULIN SCH ×4 (07:00→20:52)
[2018-09-24] MEDS: SPIRONOLACTONE 25 MG TABLET PO SCH (08:17)
[2018-09-24] MEDS: CARVEDILOL 12.5 MG TABLET PO SCH ×2 (08:17→20:52)
[2018-09-24] MEDS: FAMOTIDINE 20 MG TABLET PO SCH ×2 (08:18→20:52)
[2018-09-24] MEDS: POTASSIUM CHLORIDE 10 MEQ TABLET.ER PO SCH (08:18)
[2018-09-24] MEDS: ASPIRIN 81 MG TABLET EC PO SCH (08:18)
[2018-09-24] MEDS: ALBUTEROL/IPRATROPIUM 2.5MG/0.5MG, 3 ML NPPB SCH ×2 (08:45→19:59)
[2018-09-24 09:44] VITALS: BP 115/81
[2018-09-24] MEDS: LISINOPRIL 20 MG TABLET PO SCH ×2 (09:54→20:51)
[2018-09-24 16:05] VITALS: BP 110/74
[2018-09-24 19:14] VITALS: BP 109/80
[2018-09-24] MEDS: SIMVASTATIN 10 MG TABLET PO SCH (20:51)
[2018-09-25 02:36] VITALS: BP 110/79
[2018-09-25] MEDS: ENOXAPARIN 30 MG/0.3 ML SQ SCH (05:21)
[2018-09-25 05:27] LABS: MEAN CORPUSCULAR HEMOGLOBIN 32.5 pg (27.5-34.5); MEAN CORPUSCULAR HGB CONC 32.2 g/dL (33.2-36.2); MEAN CORPUSCULAR VOLUME 100.9 fL (81-97); MEAN PLATELET VOLUME 9.1 fL (7.4-10.4); PLATELET COUNT 168 x10^3/uL (130-400); RED BLOOD COUNT 4.42 x10^6/uL (4.38-5.82); RED CELL DISTRIBUTION WIDTH 16.9 % (9.4-14.8)
[2018-09-25 05:34] LABS: ALANINE AMINOTRANSFERASE 20 U/L (12-78); ANION GAP 6 mmol/L (5-15); CALCIUM 8.7 mg/dL (8.5-10.1); CHLORIDE 108 mmol/L (98-107); CREATININE 1.45 mg/dL (0.7-1.3)
[2018-09-25 05:37] LABS: ALKALINE PHOSPHATASE 112 U/L (45-117); BILIRUBIN,TOTAL 1.9 mg/dL (0.2-1.0)
[2018-09-25 06:08] LABS: BASOPHILS # (AUTO) 0.08 x10^3/uL (0-0.1); BASOPHILS % (AUTO) 1 % (0-1); EOSINOPHILS # (AUTO) 0.65 x10^3/uL (0-0.4); EOSINOPHILS % (AUTO) 11 % (1-7); LYMPHOCYTES # (AUTO) 1.12 x10^3/uL (1-3.4); LYMPHOCYTES % (AUTO) 19 % (22-44); MD SCAN; MONOCYTES # (AUTO) 0.37 x10^3/uL (0.2-0.8); MONOCYTES % (AUTO) 6 % (2-9); NEUTROPHILS % (AUTO) 62 % (42-75)
[2018-09-25] MEDS: INSULIN LISPRO 100 UNITS/ML, PEN SQ-INSULIN SCH (07:00)
[2018-09-25 07:20] VITALS: BP 123/82
[2018-09-25] MEDS: SPIRONOLACTONE 25 MG TABLET PO SCH (08:22)
[2018-09-25] MEDS: LISINOPRIL 20 MG TABLET PO SCH (08:22)
[2018-09-25] MEDS: CARVEDILOL 12.5 MG TABLET PO SCH (08:22)
[2018-09-25] MEDS: POTASSIUM CHLORIDE 10 MEQ TABLET.ER PO SCH (08:22)
[2018-09-25] MEDS: ASPIRIN 81 MG TABLET EC PO SCH (08:22)
[2018-09-25] MEDS: FUROSEMIDE 40 MG/4 ML IV SCH (08:22)
[2018-09-25] MEDS: FAMOTIDINE 20 MG TABLET PO SCH (08:22)
[2018-09-25] MEDS ORDERED: SPIR25TA5 PO (08:48)
[2018-09-25] MEDS ORDERED: SIMV10TA3 PO (08:48)
[2018-09-25] MEDS ORDERED: LISI-170 PO (08:48)
[2018-09-25] MEDS ORDERED: CARV12.52 PO (08:48)
[2018-09-25] MEDS ORDERED: METF500T17 PO (08:48)
[2018-09-25] MEDS ORDERED: FURO20TA3 PO (08:48)
[2018-09-25] MEDS ORDERED: RANI-467 PO (08:48)
[2018-09-25] MEDS ORDERED: ASPI-496 PO (08:48)
[2018-09-25] MEDS ORDERED: POTA10TA12 PO (08:48)
[2018-09-25] MEDS ORDERED: POTASSIUM CHLORIDE 20 MEQ TAB.ER.PRT PO ONE (09:00)
[2018-12-10] MEDS ORDERED: OTC DIURETIC (16:38)
[2018-12-11] MEDS ORDERED: CARV12.52 PO (00:38)
[2018-12-11] MEDS ORDERED: RANI150T4 PO (00:38)
[2018-12-11] MEDS ORDERED: FURO20TA3 PO (00:39)
[2018-12-11] MEDS ORDERED: SIMV10TA3 PO (00:39)
[2018-12-11] MEDS ORDERED: ASPI81TA45 PO (00:39)
[2018-12-11] MEDS ORDERED: SPIR25TA5 PO (00:39)
[2018-12-11] MEDS ORDERED: POTA10TA6 PO (00:39)
[2018-12-11] MEDS ORDERED: LISI-170 PO (00:39)
== END 2018-09-25 10:00 | disposition home or self-care (01) | DRG 291 ==
LOC: ED 21:43 → EDIP 21:48 → 5SO 22:22 → DCLOUNGE 09-25 09:51
PROVIDERS: ADMIT Internal Medicine; ATTEND Internal Medicine
PROC: 5A09357 Assistance with Respiratory Ventilation, Less than 24 Consecutive Hours, Continuous Positive Airway Pressure (ICD-10-PCS; 2018-09-23)
PROC: 5A09357 Assistance with Respiratory Ventilation, Less than 24 Consecutive Hours, Continuous Positive Airway Pressure (ICD-10-PCS; principal; 2018-09-24)
PROC: 5A09357 Assistance with Respiratory Ventilation, Less than 24 Consecutive Hours, Continuous Positive Airway Pressure (ICD-10-PCS; 2018-09-25)
DX: I11.0 Hypertensive heart disease with heart failure (principal); J96.20 Acute and chronic respiratory failure, unspecified whether with hypoxia or hypercapnia; E66.2 Morbid (severe) obesity with alveolar hypoventilation; I50.23 Acute on chronic systolic (congestive) heart failure; E11.9 Type 2 diabetes mellitus without complications; I42.9 Cardiomyopathy, unspecified; E78.5 Hyperlipidemia, unspecified; F17.210 Nicotine dependence, cigarettes, uncomplicated; I44.7 Left bundle-branch block, unspecified; K21.9 Gastro-esophageal reflux disease without esophagitis; J44.9 Chronic obstructive pulmonary disease, unspecified; Z82.49 Family history of ischemic heart disease and other diseases of the circulatory system; Z68.39 Body mass index [BMI] 39.0-39.9, adult; I25.2 Old myocardial infarction; Z83.3 Family history of diabetes mellitus; Z95.810 Presence of automatic (implantable) cardiac defibrillator; Z79.84 Long term (current) use of oral hypoglycemic drugs
CPT/HCPCS: 36415; 99285; C8929; J7620; 71045; 80048; 80053; 82962; 83036; 83735; 83880; 84484; 85025; 93005; 94640; 94660; 96374; G0378; J1650; J1940; Q9957

== ENCOUNTER 2019-03-28 08:58 | Emergency (ER) | payer MEDICAID ==
[~2019-03-28] VITALS: Ht 162.6 cm; Wt 108.0 kg
[~2019-03-28 08:58] MED LIST changes: +ASPI81TA45 PO; +FURO40TA6 PO; +LISI-167 PO; +METO5TAB5 PO; +OTC DIURETIC; +POTA10TA6 PO; +RANI150T4 PO; +SIMV10TA18 PO; -SIMV10TA3 PO
[2019-03-28] MEDS ORDERED: SODIUM CHLORIDE FLUSH 10ML SYR IVF ONE (09:30)
--- NOTE | 2019-03-28 09:43 | NUR ---
PT AMBULATORY TO ROOM FROM TRIAGE. ABD WITH PROFOUND ASCITES. PT WITH CHF, STATES HAS BEEN MEDICATIONS, BLOATING STARTED ABOUT 1 MONTH AGO. PT ON ALL MONITORS, EKG COMPLETED, PIV EST AND LABS DRAWN. ORDERS REVIEWED AND POC. QUESTIONS ANSWERED. CALL LIGHT W/I REACH
[2019-03-28] MEDS ORDERED: FURO-93 PO (09:49)
[2019-03-28] MEDS ORDERED: METF500T17 PO (09:49)
[2019-03-28 10:32] LABS: BASOPHILS # (AUTO) 0.05 x10^3/uL (0-0.1); BASOPHILS % (AUTO) 1 % (0-1); EOSINOPHILS # (AUTO) 0.27 x10^3/uL (0-0.4); EOSINOPHILS % (AUTO) 4 % (1-7); LYMPHOCYTES # (AUTO) 0.89 x10^3/uL (1-3.4); LYMPHOCYTES % (AUTO) 14 % (22-44); MD NO; MEAN CORPUSCULAR HEMOGLOBIN 33.7 pg (27.5-34.5); MEAN CORPUSCULAR HGB CONC 32.1 g/dL (33.2-36.2); MEAN CORPUSCULAR VOLUME 105.1 fL (81-97); MEAN PLATELET VOLUME 8.2 fL (7.4-10.4); MONOCYTES # (AUTO) 0.39 x10^3/uL (0.2-0.8); MONOCYTES % (AUTO) 6 % (2-9); NEUTROPHILS # (AUTO) 4.57 x10^3/uL (1.8-6.8); NEUTROPHILS % (AUTO) 74 % (42-75); PLATELET COUNT 199 x10^3/uL (130-400); RED BLOOD COUNT 4.34 x10^6/uL (4.38-5.82)
[2019-03-28 10:42] LABS: ALANINE AMINOTRANSFERASE 14 U/L (12-78); ALBUMIN 3.1 g/dL (3.4-5.0); ANION GAP 7 mmol/L (5-15); CALCIUM 8.4 mg/dL (8.5-10.1); CHLORIDE 111 mmol/L (98-107)
[2019-03-28 10:47] LABS: ALKALINE PHOSPHATASE 117 U/L (45-117); BILIRUBIN,TOTAL 1.7 mg/dL (0.2-1.0); TOTAL PROTEIN 6.5 g/dL (6.4-8.2); TROPONIN I < 0.015 ng/mL (0.000-0.045)
[2019-03-28] MEDS ORDERED: FUROSEMIDE 40 MG/4 ML IV ONE (11:30)
[2019-03-28 11:35] VITALS: BP 125/89
--- NOTE | 2019-03-28 11:42 | NUR ---
Patient/Caregiver given discharge instructions and they have confirmed that they understand the instructions. Patient ambulatory with steady gait.
== END 2019-03-28 11:45 | disposition home or self-care (01) ==
LOC: ED 11:37
DX: R60.0 Localized edema (principal); I11.0 Hypertensive heart disease with heart failure; I50.9 Heart failure, unspecified; E11.9 Type 2 diabetes mellitus without complications; I25.2 Old myocardial infarction
CPT/HCPCS: 36415; 71045; 80053; 83880; 84484; 85025; 93005; 99284

== ENCOUNTER 2019-04-30 14:51 | Emergency (ER) | payer MEDICAID ==
[~2019-04-30] VITALS: Ht 165.1 cm; Wt 109.3 kg
[~2019-04-30 14:51] MED LIST changes: +FURO-93 PO
[2019-04-30 16:50] LABS: BASOPHILS # (AUTO) 0.09 x10^3/uL (0-0.1); BASOPHILS % (AUTO) 1 % (0-1); EOSINOPHILS # (AUTO) 0.37 x10^3/uL (0-0.4); EOSINOPHILS % (AUTO) 4 % (1-7); LYMPHOCYTES # (AUTO) 0.93 x10^3/uL (1-3.4); LYMPHOCYTES % (AUTO) 11 % (22-44); MD NO; MEAN CORPUSCULAR HEMOGLOBIN 33.4 pg (27.5-34.5); MEAN CORPUSCULAR HGB CONC 32.2 g/dL (33.2-36.2); MEAN CORPUSCULAR VOLUME 103.7 fL (81-97); MEAN PLATELET VOLUME 8.8 fL (7.4-10.4); MONOCYTES # (AUTO) 0.57 x10^3/uL (0.2-0.8); MONOCYTES % (AUTO) 7 % (2-9); NEUTROPHILS # (AUTO) 6.82 x10^3/uL (1.8-6.8); NEUTROPHILS % (AUTO) 78 % (42-75); PLATELET COUNT 191 x10^3/uL (130-400); RED BLOOD COUNT 4.51 x10^6/uL (4.38-5.82); RED CELL DISTRIBUTION WIDTH 15.2 % (9.4-14.8)
[2019-04-30 16:54] LABS: ALBUMIN 3.4 g/dL (3.4-5.0); ANION GAP 9 mmol/L (5-15); CALCIUM 8.4 mg/dL (8.5-10.1); CHLORIDE 107 mmol/L (98-107)
[2019-04-30 16:59] LABS: ALANINE AMINOTRANSFERASE 16 U/L (12-78); ALKALINE PHOSPHATASE 136 U/L (45-117); CREATININE 1.33 mg/dL (0.7-1.3); TOTAL PROTEIN 6.9 g/dL (6.4-8.2)
--- NOTE | 2019-04-30 17:25 | NUR ---
FROM LOBBY TO ROOM AT THIS TIME. PIT ORDERS COMPLETED. AWAITING MD ASSESSMENT
[2019-04-30] MEDS ORDERED: ALBUMIN HUMAN 5% 500 ML IV ONE (18:30)
--- NOTE | 2019-04-30 18:46 | NUR ---
ORDERS RECIEVED. IV PLACED. AWAITING US PARACENTESIS
[2019-04-30] MEDS ORDERED: LIDOCAINE 1%, 10ML ONE (18:51)
--- NOTE | 2019-04-30 19:13 | NUR ---
REQUEST FOR MEDS SENT TO PHARM
--- NOTE | 2019-04-30 19:15 | NUR ---
TAKEN TO US
[2019-04-30 20:11] VITALS: BP 142/79
--- NOTE | 2019-04-30 20:25 | NUR ---
PT BACK FROM US, STS THEY TOOK OFF 3 LITERS. MD UPDATED. NO NEED FOR DRIP AT THIS TIME DUE TO AMOUNT TAKEN OFF PER MD. PT STS DOES NOT WANT TO STAY THE NIGHT. VSS AT THIS TIME. AWAITING DISPO
== END 2019-04-30 21:06 | disposition home or self-care (01) ==
LOC: ED 20:35
DX: R18.8 Other ascites (principal); I11.0 Hypertensive heart disease with heart failure; I50.9 Heart failure, unspecified; I25.2 Old myocardial infarction; E11.9 Type 2 diabetes mellitus without complications; F17.200 Nicotine dependence, unspecified, uncomplicated; I44.0 Atrioventricular block, first degree
CPT/HCPCS: 36415; 49083; 71045; 80053; 83880; 85025; 88112; 88305; 93005; 99285; J3490

== ENCOUNTER 2019-05-28 20:32 | Inpatient (IN) | payer MEDICAID ==
[~2019-05-28] VITALS: Ht 165.1 cm; Wt 101.8 kg
--- NOTE | 2019-05-28 20:48 | NUR ---
Pt reports he does not have a current list of medications.
[2019-05-28] MEDS ORDERED: SODIUM CHLORIDE FLUSH 10ML SYR IVF ONE (21:00)
--- NOTE | 2019-05-28 21:01 | NUR ---
Pt alert and sitting up on gurney. Pt noted to be short of breath with labored breathing present. Pt 94% on RA. Pt reports chronic SOB that has been worsening. Pt reports he has had a previous paracentesis where 3.5L were drained. Pt noted to have firm, distended abd. Lung sounds diminished throughout. Pt in gown and on full monitors. PIV placed with lab draw. PA at bedside.
--- NOTE | 2019-05-28 21:09 | NUR ---
Xray at bedside.
[2019-05-28 21:12] LABS: BASOPHILS # (AUTO) 0.07 x10^3/uL (0-0.1); BASOPHILS % (AUTO) 1 % (0-1); EOSINOPHILS # (AUTO) 0.52 x10^3/uL (0-0.4); EOSINOPHILS % (AUTO) 8 % (1-7); LYMPHOCYTES # (AUTO) 0.73 x10^3/uL (1-3.4); LYMPHOCYTES % (AUTO) 11 % (22-44); MD NO; MEAN CORPUSCULAR HEMOGLOBIN 32.4 pg (27.5-34.5); MEAN CORPUSCULAR HGB CONC 31.6 g/dL (33.2-36.2); MEAN CORPUSCULAR VOLUME 102.6 fL (81-97); MEAN PLATELET VOLUME 8.5 fL (7.4-10.4); MONOCYTES # (AUTO) 0.53 x10^3/uL (0.2-0.8); MONOCYTES % (AUTO) 8 % (2-9); NEUTROPHILS % (AUTO) 73 % (42-75); PLATELET COUNT 233 x10^3/uL (130-400); RED BLOOD COUNT 4.66 x10^6/uL (4.38-5.82); RED CELL DISTRIBUTION WIDTH 15.6 % (9.4-14.8)
[2019-05-28 21:22] LABS: ALANINE AMINOTRANSFERASE 19 U/L (12-78); ALBUMIN 3.3 g/dL (3.4-5.0); ANION GAP 5 mmol/L (5-15); CALCIUM 8.8 mg/dL (8.5-10.1); CHLORIDE 105 mmol/L (98-107); CREATININE 1.12 mg/dL (0.7-1.3)
[2019-05-28 21:25] LABS: ALKALINE PHOSPHATASE 151 U/L (45-117); BILIRUBIN,TOTAL 1.5 mg/dL (0.2-1.0); TOTAL PROTEIN 7.5 g/dL (6.4-8.2)
--- NOTE | 2019-05-28 21:46 | NUR ---
Pt remains unchanged. VS retaken. Pt aware that chart is up for re-eval.
[2019-05-28] MEDS ORDERED: FUROSEMIDE 40 MG/4 ML IV ONE (22:00)
[2019-05-28] MEDS ORDERED: FUROSEMIDE 40 MG/4 ML ONE (22:06)
--- NOTE | 2019-05-28 22:13 | NUR ---
VS retaken. Lasix given. Urinals at bedside.
[2019-05-28 22:31] LABS: INTERNATIONAL NORMALIZED RATIO 1.2 (0.93-1.1); PROTHROMBIN TIME 12.7 Seconds (9.6-11.5)
[2019-05-28 22:36] LABS: TROPONIN I < 0.015 ng/mL (0.000-0.045)
[2019-05-28] MEDS ORDERED: ONDANSETRON 2MG/ML, 2ML IVPush PRN (23:00)
[2019-05-28] MEDS ORDERED: hydrALAzine 20 MG/ML, 1ML IVPush PRN (23:00)
--- NOTE | 2019-05-28 23:18 | NUR ---
Pt swabbed for ful. Iso precautions in place. VSS. 500ml of urine in urinal.
--- NOTE | 2019-05-28 23:24 | NUR ---
Report given to PAMELA Batista
--- NOTE | 2019-05-28 23:35 | NUR ---
At time of admit, pt alert, oriented and in NAD. Mask in place.
[2019-05-29 00:39] VITALS: BP 124/82
[2019-05-29 01:07] LABS: RAPID INFLUENZA A Negative (Negative); RAPID INFLUENZA B Negative (Negative)
[2019-05-29 06:41] LABS: BASOPHILS # (AUTO) 0.05 x10^3/uL (0-0.1); BASOPHILS % (AUTO) 1 % (0-1); EOSINOPHILS # (AUTO) 0.29 x10^3/uL (0-0.4); EOSINOPHILS % (AUTO) 5 % (1-7); LYMPHOCYTES # (AUTO) 0.76 x10^3/uL (1-3.4); LYMPHOCYTES % (AUTO) 13 % (22-44); MD NO; MEAN CORPUSCULAR HEMOGLOBIN 32.7 pg (27.5-34.5); MEAN CORPUSCULAR HGB CONC 32.4 g/dL (33.2-36.2); MEAN CORPUSCULAR VOLUME 100.9 fL (81-97); MEAN PLATELET VOLUME 8.5 fL (7.4-10.4); MONOCYTES # (AUTO) 0.49 x10^3/uL (0.2-0.8); MONOCYTES % (AUTO) 9 % (2-9); NEUTROPHILS # (AUTO) 4.09 x10^3/uL (1.8-6.8); NEUTROPHILS % (AUTO) 72 % (42-75); PLATELET COUNT 188 x10^3/uL (130-400); RED BLOOD COUNT 4.33 x10^6/uL (4.38-5.82); RED CELL DISTRIBUTION WIDTH 15.4 % (9.4-14.8)
[2019-05-29 06:44] LABS: ANION GAP 6 mmol/L (5-15); CALCIUM 8.6 mg/dL (8.5-10.1); CHLORIDE 108 mmol/L (98-107); CREATININE 1.02 mg/dL (0.7-1.3)
[2019-05-29 06:48] LABS: TROPONIN I 0.016 ng/mL (0.000-0.045)
[2019-05-29] MEDS: INSULIN LISPRO 100 UNITS/ML, PEN SQ-INSULIN SCH ×4 (07:00→22:00)
[2019-05-29] MEDS: METOLAZONE 2.5 MG TABLET PO SCH ×2 (07:30→16:17)
[2019-05-29 07:33] VITALS: BP 107/87
[2019-05-29] MEDS: FUROSEMIDE 40 MG TABLET PO SCH ×2 (08:00→16:17)
[2019-05-29] MEDS: LISINOPRIL 5 MG TABLET PO SCH ×2 (09:00→21:52)
[2019-05-29] MEDS: ASPIRIN 81 MG TABLET EC PO SCH (09:00)
[2019-05-29] MEDS: SPIRONOLACTONE 25 MG TABLET PO SCH (09:00)
[2019-05-29 13:02] VITALS: BP 123/89
[2019-05-29] MEDS ORDERED: ENOXAPARIN 40 MG/0.4 ML SQ SCH (17:00)
[2019-05-29 20:41] VITALS: BP 116/82
[2019-05-29] MEDS: FUROSEMIDE 40 MG/4 ML IV SCH (21:52)
[2019-05-29] MEDS: ENOXAPARIN 40 MG/0.4 ML SQ SCH (21:53)
[2019-05-29] MEDS: SIMVASTATIN 10 MG TABLET PO SCH (21:53)
[2019-05-30 02:24] VITALS: BP 118/63
[2019-05-30] MEDS: INSULIN LISPRO 100 UNITS/ML, PEN SQ-INSULIN SCH ×4 (07:30→20:57)
[2019-05-30 08:27] LABS: ANION GAP 3 mmol/L (5-15); CALCIUM 9.1 mg/dL (8.5-10.1); CHLORIDE 102 mmol/L (98-107); CREATININE 1.15 mg/dL (0.7-1.3)
[2019-05-30] MEDS ORDERED: LISINOPRIL 10 MG TABLET ONE (08:31)
[2019-05-30 08:52] VITALS: BP 121/90
[2019-05-30] MEDS: FUROSEMIDE 40 MG/4 ML IV SCH ×2 (09:35→16:47)
[2019-05-30] MEDS: LISINOPRIL 5 MG TABLET PO SCH ×2 (09:36→21:03)
[2019-05-30] MEDS: ASPIRIN 81 MG TABLET EC PO SCH (09:36)
[2019-05-30] MEDS: SPIRONOLACTONE 25 MG TABLET PO SCH (09:36)
[2019-05-30] MEDS: METOLAZONE 2.5 MG TABLET PO SCH ×2 (09:36→16:47)
[2019-05-30 13:09] VITALS: BP 115/84
[2019-05-30 19:36] VITALS: BP 113/80
[2019-05-30] MEDS: SIMVASTATIN 10 MG TABLET PO SCH (21:04)
[2019-05-30] MEDS: ENOXAPARIN 40 MG/0.4 ML SQ SCH (21:04)
[2019-05-31 00:59] VITALS: BP 123/80
[2019-05-31 07:49] VITALS: BP 123/93
[2019-05-31] MEDS ORDERED: LIDOCAINE 1%, 10ML ONE (08:42)
[2019-05-31] MEDS: FUROSEMIDE 40 MG/4 ML IV SCH ×2 (10:23→16:58)
[2019-05-31] MEDS: SPIRONOLACTONE 25 MG TABLET PO SCH (10:23)
[2019-05-31] MEDS: ASPIRIN 81 MG TABLET EC PO SCH (10:23)
[2019-05-31] MEDS: METOLAZONE 2.5 MG TABLET PO SCH ×2 (10:23→16:58)
[2019-05-31] MEDS: LISINOPRIL 5 MG TABLET PO SCH ×2 (10:23→20:35)
[2019-05-31] MEDS: INSULIN LISPRO 100 UNITS/ML, PEN SQ-INSULIN SCH ×4 (10:24→20:29)
[2019-05-31] MEDS: CARVEDILOL 3.125 MG TABLET PO SCH ×2 (10:30→16:58)
[2019-05-31 12:19] VITALS: BP 122/86
[2019-05-31] MEDS: ENOXAPARIN 30 MG/0.3 ML SQ SCH (14:20)
[2019-05-31 18:48] VITALS: BP 116/82
[2019-05-31] MEDS: SIMVASTATIN 10 MG TABLET PO SCH (20:34)
[2019-06-01 01:22] VITALS: BP 113/81
[2019-06-01] MEDS: ENOXAPARIN 30 MG/0.3 ML SQ SCH ×2 (02:18→14:53)
[2019-06-01 04:55] LABS: BASOPHILS # (AUTO) 0.01 x10^3/uL (0-0.1); BASOPHILS % (AUTO) 0 % (0-1); EOSINOPHILS # (AUTO) 0.04 x10^3/uL (0-0.4); EOSINOPHILS % (AUTO) 0 % (1-7); LYMPHOCYTES # (AUTO) 0.68 x10^3/uL (1-3.4); LYMPHOCYTES % (AUTO) 7 % (22-44); MD NO; MEAN CORPUSCULAR HEMOGLOBIN 32.7 pg (27.5-34.5); MEAN CORPUSCULAR HGB CONC 32.9 g/dL (33.2-36.2); MEAN CORPUSCULAR VOLUME 99.4 fL (81-97); MEAN PLATELET VOLUME 8.5 fL (7.4-10.4); MONOCYTES # (AUTO) 0.69 x10^3/uL (0.2-0.8); MONOCYTES % (AUTO) 7 % (2-9); NEUTROPHILS # (AUTO) 8.86 x10^3/uL (1.8-6.8); NEUTROPHILS % (AUTO) 86 % (42-75); PLATELET COUNT 185 x10^3/uL (130-400); RED BLOOD COUNT 4.34 x10^6/uL (4.38-5.82); RED CELL DISTRIBUTION WIDTH 14.7 % (9.4-14.8)
[2019-06-01 05:05] LABS: ANION GAP 8 mmol/L (5-15); CALCIUM 9.1 mg/dL (8.5-10.1); CHLORIDE 90 mmol/L (98-107)
[2019-06-01 05:08] LABS: ALANINE AMINOTRANSFERASE 15 U/L (12-78); ALKALINE PHOSPHATASE 121 U/L (45-117); BILIRUBIN,TOTAL 2.8 mg/dL (0.2-1.0); CREATININE 1.27 mg/dL (0.7-1.3)
[2019-06-01 05:24] VITALS: BP 111/77
[2019-06-01] MEDS: CARVEDILOL 3.125 MG TABLET PO SCH ×2 (05:24→17:11)
[2019-06-01 07:19] VITALS: BP 116/81
[2019-06-01] MEDS: LISINOPRIL 5 MG TABLET PO SCH ×2 (08:48→20:39)
[2019-06-01] MEDS: METOLAZONE 2.5 MG TABLET PO SCH ×2 (08:48→17:12)
[2019-06-01] MEDS: ASPIRIN 81 MG TABLET EC PO SCH (08:48)
[2019-06-01] MEDS: FUROSEMIDE 40 MG/4 ML IV SCH ×2 (08:48→08:49)
[2019-06-01] MEDS: INSULIN LISPRO 100 UNITS/ML, PEN SQ-INSULIN SCH ×4 (08:48→19:59)
[2019-06-01] MEDS: SPIRONOLACTONE 25 MG TABLET PO SCH (08:48)
[2019-06-01 09:46] LABS: MICROSCOPIC NOT IND
[2019-06-01 09:49] LABS: CULTURE INDICATED? NO
[2019-06-01 13:53] VITALS: BP 113/84
[2019-06-01] MEDS: ACETAMINOPHEN 325 MG TABLET PO PRN (14:53)
[2019-06-01] MEDS ORDERED: POTASSIUM CHLORIDE 20 MEQ TAB.ER.PRT PO SCH (17:00)
[2019-06-01 19:11] VITALS: BP 99/70
[2019-06-01] MEDS: SIMVASTATIN 10 MG TABLET PO SCH (20:39)
[2019-06-02 00:40] VITALS: BP 124/89
[2019-06-02] MEDS: ENOXAPARIN 30 MG/0.3 ML SQ SCH ×2 (02:01→16:37)
[2019-06-02 04:40] LABS: BASOPHILS # (AUTO) 0.02 x10^3/uL (0-0.1); BASOPHILS % (AUTO) 0 % (0-1); EOSINOPHILS # (AUTO) 0.05 x10^3/uL (0-0.4); EOSINOPHILS % (AUTO) 1 % (1-7); LYMPHOCYTES # (AUTO) 0.55 x10^3/uL (1-3.4); LYMPHOCYTES % (AUTO) 7 % (22-44); MD NO; MEAN CORPUSCULAR HEMOGLOBIN 32.7 pg (27.5-34.5); MEAN CORPUSCULAR HGB CONC 33.1 g/dL (33.2-36.2); MEAN CORPUSCULAR VOLUME 98.9 fL (81-97); MEAN PLATELET VOLUME 8.7 fL (7.4-10.4); MONOCYTES # (AUTO) 0.67 x10^3/uL (0.2-0.8); MONOCYTES % (AUTO) 8 % (2-9); NEUTROPHILS # (AUTO) 7.16 x10^3/uL (1.8-6.8); NEUTROPHILS % (AUTO) 85 % (42-75); PLATELET COUNT 175 x10^3/uL (130-400); RED BLOOD COUNT 4.47 x10^6/uL (4.38-5.82)
[2019-06-02 04:43] LABS: ALBUMIN 2.8 g/dL (3.4-5.0); ANION GAP 6 mmol/L (5-15); CALCIUM 9.1 mg/dL (8.5-10.1); CHLORIDE 90 mmol/L (98-107)
[2019-06-02 04:47] LABS: ALANINE AMINOTRANSFERASE 15 U/L (12-78); ALKALINE PHOSPHATASE 114 U/L (45-117); BILIRUBIN,TOTAL 2.4 mg/dL (0.2-1.0); CREATININE 1.25 mg/dL (0.7-1.3); TOTAL PROTEIN 6.9 g/dL (6.4-8.2)
[2019-06-02 05:55] VITALS: BP 119/77
[2019-06-02] MEDS: CARVEDILOL 3.125 MG TABLET PO SCH ×2 (05:55→17:16)
[2019-06-02 07:33] VITALS: BP 107/73
[2019-06-02] MEDS: INSULIN LISPRO 100 UNITS/ML, PEN SQ-INSULIN SCH ×4 (07:53→21:00)
[2019-06-02] MEDS: ACETAMINOPHEN 325 MG TABLET PO PRN (08:40)
[2019-06-02] MEDS: POTASSIUM CHLORIDE 20 MEQ TAB.ER.PRT PO SCH ×3 (08:40→21:35)
[2019-06-02] MEDS: ASPIRIN 81 MG TABLET EC PO SCH (08:40)
[2019-06-02] MEDS: LISINOPRIL 5 MG TABLET PO SCH ×2 (08:40→21:35)
[2019-06-02] MEDS: METOLAZONE 2.5 MG TABLET PO SCH ×2 (08:40→17:16)
[2019-06-02] MEDS: SPIRONOLACTONE 25 MG TABLET PO SCH (08:40)
[2019-06-02] MEDS ORDERED: FUROSEMIDE 40 MG TABLET ONE (08:45)
[2019-06-02] MEDS: FUROSEMIDE 40 MG TABLET PO SCH (08:46)
[2019-06-02] MEDS ORDERED: VANCOMYCIN 2,600 MG in SODIUM CHLORIDE 0.9% 500 ML IV ONE (09:00)
[2019-06-02] MEDS ORDERED: PHARMACOKINETIC MONITORING MC PRN (09:00)
[2019-06-02] MEDS ORDERED: VANCOMYCIN PER PHARMACY MC PRN (09:00)
[2019-06-02] MEDS ORDERED: PHARMACOKINETIC CONSULTATION MC ONE (09:00)
[2019-06-02] MEDS: CYCLOBENZAPRINE 10 MG TABLET PO PRN ×3 (12:11→23:39)
[2019-06-02 12:47] VITALS: BP 164/86
[2019-06-02 19:17] VITALS: BP 118/82
[2019-06-02] MEDS: SIMVASTATIN 10 MG TABLET PO SCH (21:35)
[2019-06-03 00:49] VITALS: BP 113/67
[2019-06-03] MEDS: VANCOMYCIN 2,000 MG in SODIUM CHLORIDE 0.9% 500 ML IV SCH ×2 (03:46→20:39)
[2019-06-03] MEDS: ENOXAPARIN 30 MG/0.3 ML SQ SCH (03:46)
[2019-06-03 05:31] LABS: BASOPHILS # (AUTO) 0.02 x10^3/uL (0-0.1); BASOPHILS % (AUTO) 0 % (0-1); EOSINOPHILS # (AUTO) 0.13 x10^3/uL (0-0.4); EOSINOPHILS % (AUTO) 2 % (1-7); LYMPHOCYTES # (AUTO) 0.69 x10^3/uL (1-3.4); LYMPHOCYTES % (AUTO) 8 % (22-44); MD NO; MEAN CORPUSCULAR HEMOGLOBIN 32.4 pg (27.5-34.5); MEAN CORPUSCULAR HGB CONC 32.4 g/dL (33.2-36.2); MEAN CORPUSCULAR VOLUME 99.9 fL (81-97); MONOCYTES # (AUTO) 0.73 x10^3/uL (0.2-0.8); MONOCYTES % (AUTO) 9 % (2-9); NEUTROPHILS # (AUTO) 6.79 x10^3/uL (1.8-6.8); NEUTROPHILS % (AUTO) 81 % (42-75); PLATELET COUNT 168 x10^3/uL (130-400); RED BLOOD COUNT 4.59 x10^6/uL (4.38-5.82); RED CELL DISTRIBUTION WIDTH 14.9 % (9.4-14.8)
[2019-06-03] MEDS: CARVEDILOL 3.125 MG TABLET PO SCH ×2 (05:40→17:06)
[2019-06-03 05:46] LABS: ALBUMIN 2.7 g/dL (3.4-5.0); CALCIUM 8.8 mg/dL (8.5-10.1); CHLORIDE 94 mmol/L (98-107)
[2019-06-03 05:52] LABS: ALANINE AMINOTRANSFERASE 17 U/L (12-78); ALKALINE PHOSPHATASE 116 U/L (45-117); ANION GAP 6 mmol/L (5-15); BILIRUBIN,TOTAL 2.2 mg/dL (0.2-1.0); CREATININE 1.08 mg/dL (0.7-1.3); TOTAL PROTEIN 7.1 g/dL (6.4-8.2)
[2019-06-03 06:53] VITALS: BP 107/77
[2019-06-03] MEDS: INSULIN LISPRO 100 UNITS/ML, PEN SQ-INSULIN SCH ×4 (07:00→20:30)
[2019-06-03] MEDS: ACETAMINOPHEN 325 MG TABLET PO PRN ×3 (08:06→22:47)
[2019-06-03] MEDS: POTASSIUM CHLORIDE 20 MEQ TAB.ER.PRT PO SCH ×3 (08:06→09:00)
[2019-06-03] MEDS: CYCLOBENZAPRINE 10 MG TABLET PO PRN ×3 (08:06→22:47)
[2019-06-03] MEDS: ASPIRIN 81 MG TABLET EC PO SCH (08:06)
[2019-06-03] MEDS: FUROSEMIDE 40 MG TABLET PO SCH (08:07)
[2019-06-03] MEDS: LISINOPRIL 5 MG TABLET PO SCH ×2 (08:07→20:29)
[2019-06-03] MEDS: METOLAZONE 2.5 MG TABLET PO SCH ×2 (08:07→17:06)
[2019-06-03] MEDS: SPIRONOLACTONE 25 MG TABLET PO SCH (08:07)
[2019-06-03 13:42] VITALS: BP 97/70
[2019-06-03 20:08] VITALS: BP 86/56
[2019-06-03] MEDS: SIMVASTATIN 10 MG TABLET PO SCH (20:39)
[2019-06-03 22:53] VITALS: BP 103/72
[2019-06-04 02:11] VITALS: BP 101/69
[2019-06-04 05:17] LABS: BASOPHILS # (AUTO) 0.02 x10^3/uL (0-0.1); BASOPHILS % (AUTO) 0 % (0-1); EOSINOPHILS # (AUTO) 0.65 x10^3/uL (0-0.4); EOSINOPHILS % (AUTO) 10 % (1-7); LYMPHOCYTES % (AUTO) 12 % (22-44); MD NO; MEAN CORPUSCULAR HEMOGLOBIN 32.4 pg (27.5-34.5); MEAN CORPUSCULAR HGB CONC 32.5 g/dL (33.2-36.2); MEAN CORPUSCULAR VOLUME 99.5 fL (81-97); MEAN PLATELET VOLUME 9.1 fL (7.4-10.4); MONOCYTES # (AUTO) 0.87 x10^3/uL (0.2-0.8); MONOCYTES % (AUTO) 13 % (2-9); NEUTROPHILS # (AUTO) 4.43 x10^3/uL (1.8-6.8); NEUTROPHILS % (AUTO) 66 % (42-75); PLATELET COUNT 171 x10^3/uL (130-400); RED BLOOD COUNT 4.57 x10^6/uL (4.38-5.82); RED CELL DISTRIBUTION WIDTH 15.2 % (9.4-14.8)
[2019-06-04 05:28] LABS: ALANINE AMINOTRANSFERASE 19 U/L (12-78); ALBUMIN 2.6 g/dL (3.4-5.0); ANION GAP 6 mmol/L (5-15); CALCIUM 8.5 mg/dL (8.5-10.1); CHLORIDE 96 mmol/L (98-107)
[2019-06-04 05:30] LABS: ALKALINE PHOSPHATASE 119 U/L (45-117); BILIRUBIN,TOTAL 1.9 mg/dL (0.2-1.0); CREATININE 0.86 mg/dL (0.7-1.3); TOTAL PROTEIN 6.8 g/dL (6.4-8.2)
[2019-06-04] MEDS: CARVEDILOL 3.125 MG TABLET PO SCH ×2 (05:47→17:34)
[2019-06-04 06:50] VITALS: BP 108/74
[2019-06-04] MEDS: INSULIN LISPRO 100 UNITS/ML, PEN SQ-INSULIN SCH ×4 (07:00→20:07)
[2019-06-04] MEDS: ACETAMINOPHEN 325 MG TABLET PO PRN ×2 (08:18→17:34)
[2019-06-04] MEDS: POTASSIUM CHLORIDE 20 MEQ TAB.ER.PRT PO SCH (08:18)
[2019-06-04] MEDS: ASPIRIN 81 MG TABLET EC PO SCH (08:18)
[2019-06-04] MEDS: SPIRONOLACTONE 25 MG TABLET PO SCH (08:18)
[2019-06-04] MEDS: CYCLOBENZAPRINE 10 MG TABLET PO PRN ×3 (08:18→17:34)
[2019-06-04] MEDS: FUROSEMIDE 40 MG TABLET PO SCH (08:19)
[2019-06-04] MEDS: METOLAZONE 2.5 MG TABLET PO SCH ×2 (08:19→17:34)
[2019-06-04] MEDS: LISINOPRIL 5 MG TABLET PO SCH (08:19)
[2019-06-04] MEDS ORDERED: LIDOCAINE-MPF 1%, 5ML ONE (08:59)
[2019-06-04] MEDS: LISINOPRIL 10 MG TABLET PO SCH ×2 (09:00→09:04)
[2019-06-04] MEDS ORDERED: LIDOCAINE 1%, 10ML ONE (09:00)
[2019-06-04] MEDS: CEFAZOLIN 2,000 MG in SODIUM CHLORIDE 0.9% 50 ML IV SCH ×2 (11:35→20:07)
[2019-06-04 12:32] VITALS: BP 96/67
[2019-06-04 19:01] VITALS: BP 108/75
[2019-06-04] MEDS: SIMVASTATIN 10 MG TABLET PO SCH (20:07)
[2019-06-05 01:23] VITALS: BP 98/64
[2019-06-05] MEDS: CEFAZOLIN 2,000 MG in SODIUM CHLORIDE 0.9% 50 ML IV SCH ×3 (03:39→19:49)
[2019-06-05] MEDS: CARVEDILOL 3.125 MG TABLET PO SCH ×2 (05:19→17:01)
[2019-06-05 06:31] VITALS: BP 112/73
[2019-06-05] MEDS: INSULIN LISPRO 100 UNITS/ML, PEN SQ-INSULIN SCH ×4 (07:00→19:50)
[2019-06-05] MEDS: ACETAMINOPHEN 325 MG TABLET PO PRN ×2 (07:54→17:46)
[2019-06-05] MEDS: POTASSIUM CHLORIDE 20 MEQ TAB.ER.PRT PO SCH (07:54)
[2019-06-05] MEDS: ASPIRIN 81 MG TABLET EC PO SCH (07:54)
[2019-06-05] MEDS: CYCLOBENZAPRINE 10 MG TABLET PO PRN ×2 (07:54→17:46)
[2019-06-05] MEDS: SPIRONOLACTONE 25 MG TABLET PO SCH (07:55)
[2019-06-05] MEDS: LISINOPRIL 10 MG TABLET PO SCH (07:55)
[2019-06-05] MEDS: FUROSEMIDE 40 MG TABLET PO SCH (07:55)
[2019-06-05] MEDS: METOLAZONE 2.5 MG TABLET PO SCH ×2 (07:55→16:26)
[2019-06-05] MEDS ORDERED: POTASSIUM CHLORIDE 20 MEQ TAB.ER.PRT PO SCH (09:00)
[2019-06-05 12:21] VITALS: BP 97/69
[2019-06-05] MEDS: ENOXAPARIN 40 MG/0.4 ML SQ SCH (14:56)
[2019-06-05 16:27] VITALS: BP 101/72
[2019-06-05 19:17] VITALS: BP 96/67
[2019-06-05] MEDS: SIMVASTATIN 10 MG TABLET PO SCH (19:49)
[2019-06-06 01:00] VITALS: BP 93/66
[2019-06-06] MEDS: CEFAZOLIN 2,000 MG in SODIUM CHLORIDE 0.9% 50 ML IV SCH ×3 (04:10→19:36)
[2019-06-06 04:57] LABS: BASOPHILS # (AUTO) 0.02 x10^3/uL (0-0.1); BASOPHILS % (AUTO) 0 % (0-1); EOSINOPHILS # (AUTO) 0.66 x10^3/uL (0-0.4); EOSINOPHILS % (AUTO) 8 % (1-7); LYMPHOCYTES # (AUTO) 1.29 x10^3/uL (1-3.4); LYMPHOCYTES % (AUTO) 15 % (22-44); MD NO; MEAN CORPUSCULAR HEMOGLOBIN 32.5 pg (27.5-34.5); MEAN CORPUSCULAR HGB CONC 32.5 g/dL (33.2-36.2); MEAN PLATELET VOLUME 8.9 fL (7.4-10.4); MONOCYTES # (AUTO) 0.85 x10^3/uL (0.2-0.8); MONOCYTES % (AUTO) 10 % (2-9); NEUTROPHILS # (AUTO) 5.62 x10^3/uL (1.8-6.8); NEUTROPHILS % (AUTO) 67 % (42-75); PLATELET COUNT 238 x10^3/uL (130-400); RED BLOOD COUNT 4.84 x10^6/uL (4.38-5.82); RED CELL DISTRIBUTION WIDTH 14.9 % (9.4-14.8)
[2019-06-06 05:01] LABS: ALBUMIN 2.9 g/dL (3.4-5.0); ANION GAP 3 mmol/L (5-15); CALCIUM 9.2 mg/dL (8.5-10.1); CHLORIDE 94 mmol/L (98-107)
[2019-06-06 05:05] LABS: ALANINE AMINOTRANSFERASE 22 U/L (12-78); ALKALINE PHOSPHATASE 195 U/L (45-117); BILIRUBIN,TOTAL 1.6 mg/dL (0.2-1.0); TOTAL PROTEIN 7.7 g/dL (6.4-8.2)
[2019-06-06] MEDS: CARVEDILOL 3.125 MG TABLET PO SCH ×2 (05:30→17:07)
[2019-06-06 06:53] VITALS: BP 94/66
[2019-06-06] MEDS: INSULIN LISPRO 100 UNITS/ML, PEN SQ-INSULIN SCH ×4 (07:23→20:39)
[2019-06-06] MEDS: ACETAMINOPHEN 325 MG TABLET PO PRN ×2 (07:37→17:07)
[2019-06-06] MEDS: CYCLOBENZAPRINE 10 MG TABLET PO PRN ×2 (07:38→17:07)
[2019-06-06] MEDS: LISINOPRIL 10 MG TABLET PO SCH (07:38)
[2019-06-06] MEDS: POTASSIUM CHLORIDE 20 MEQ TAB.ER.PRT PO SCH (07:38)
[2019-06-06] MEDS: ASPIRIN 81 MG TABLET EC PO SCH (07:38)
[2019-06-06] MEDS: SPIRONOLACTONE 25 MG TABLET PO SCH (07:39)
[2019-06-06] MEDS: METOLAZONE 2.5 MG TABLET PO SCH ×2 (07:39→17:07)
[2019-06-06] MEDS: FUROSEMIDE 40 MG TABLET PO SCH (07:39)
[2019-06-06 12:17] VITALS: BP 102/70
[2019-06-06] MEDS ORDERED: PROPOFOL 10 MG/ML, 20ML ONE (14:29)
[2019-06-06] MEDS ORDERED: ONDANSETRON 2MG/ML, 2ML IV PRN (15:00)
[2019-06-06] MEDS ORDERED: LABETALOL 5MG/ML, 20ML IV PRN (15:00)
[2019-06-06] MEDS ORDERED: hydrALAzine 20 MG/ML, 1ML IV PRN (15:00)
[2019-06-06] MEDS ORDERED: OXYcodone 5 MG/5 ML ORAL.SOL UDC PO PRN (15:00)
[2019-06-06] MEDS ORDERED: PROMETHAZINE 25 MG/ML, 1ML IV PRN (15:00)
[2019-06-06] MEDS ORDERED: EPHEDRINE 50 MG/ML, 1ML IVPush PRN (15:00)
[2019-06-06] MEDS ORDERED: MEPERIDINE/PF 25MG/ML,1ML IVPush PRN (15:00)
[2019-06-06] MEDS ORDERED: ACETAMINOPHEN 325 MG TABLET PO PRN (15:00)
[2019-06-06] MEDS ORDERED: FENTANYL PF 100 MCG/2ML IV PRN (15:00)
[2019-06-06] MEDS: ENOXAPARIN 40 MG/0.4 ML SQ SCH (16:02)
[2019-06-06 18:51] VITALS: BP 94/68
[2019-06-06] MEDS: SIMVASTATIN 10 MG TABLET PO SCH (20:38)
[2019-06-07 01:11] VITALS: BP 101/72
[2019-06-07] MEDS ORDERED: CEFAZOLIN PMX 2GM/50ML 50 ML IVPB SCH (03:30)
[2019-06-07 05:49] LABS: BASOPHILS # (AUTO) 0.05 x10^3/uL (0-0.1); BASOPHILS % (AUTO) 1 % (0-1); EOSINOPHILS # (AUTO) 0.56 x10^3/uL (0-0.4); EOSINOPHILS % (AUTO) 7 % (1-7); LYMPHOCYTES # (AUTO) 1.35 x10^3/uL (1-3.4); LYMPHOCYTES % (AUTO) 16 % (22-44); MD NO; MEAN CORPUSCULAR HEMOGLOBIN 32.5 pg (27.5-34.5); MEAN CORPUSCULAR HGB CONC 32.9 g/dL (33.2-36.2); MEAN CORPUSCULAR VOLUME 98.8 fL (81-97); MEAN PLATELET VOLUME 9.1 fL (7.4-10.4); MONOCYTES % (AUTO) 8 % (2-9); NEUTROPHILS # (AUTO) 5.78 x10^3/uL (1.8-6.8); NEUTROPHILS % (AUTO) 69 % (42-75); PLATELET COUNT 274 x10^3/uL (130-400); RED BLOOD COUNT 4.73 x10^6/uL (4.38-5.82); RED CELL DISTRIBUTION WIDTH 14.5 % (9.4-14.8)
[2019-06-07] MEDS: CARVEDILOL 3.125 MG TABLET PO SCH ×2 (05:54→16:49)
[2019-06-07 06:00] LABS: ANION GAP 5 mmol/L (5-15); CHLORIDE 98 mmol/L (98-107); CREATININE 1.09 mg/dL (0.7-1.3)
[2019-06-07 06:58] VITALS: BP 104/72
[2019-06-07] MEDS: ASPIRIN 81 MG TABLET EC PO SCH (09:58)
[2019-06-07] MEDS: POTASSIUM CHLORIDE 20 MEQ TAB.ER.PRT PO SCH (09:58)
[2019-06-07] MEDS: FUROSEMIDE 40 MG TABLET PO SCH (09:58)
[2019-06-07] MEDS: SPIRONOLACTONE 25 MG TABLET PO SCH (09:58)
[2019-06-07] MEDS: INSULIN LISPRO 100 UNITS/ML, PEN SQ-INSULIN SCH ×4 (09:59→20:10)
[2019-06-07] MEDS: LISINOPRIL 10 MG TABLET PO SCH (09:59)
[2019-06-07] MEDS: METOLAZONE 2.5 MG TABLET PO SCH ×2 (09:59→16:49)
[2019-06-07] MEDS: ERTAPENEM 1 GM in SODIUM CHLORIDE 0.9% 50 ML IV SCH (11:16)
[2019-06-07 13:10] VITALS: BP 111/76
[2019-06-07] MEDS: ENOXAPARIN 40 MG/0.4 ML SQ SCH (16:49)
[2019-06-07 18:49] VITALS: BP 109/68
[2019-06-07] MEDS: ACETAMINOPHEN 325 MG TABLET PO PRN (20:10)
[2019-06-07] MEDS: SIMVASTATIN 10 MG TABLET PO SCH (20:10)
[2019-06-07] MEDS: CYCLOBENZAPRINE 10 MG TABLET PO PRN (20:10)
[2019-06-08 01:02] VITALS: BP 101/71
[2019-06-08 05:34] VITALS: BP 97/67
[2019-06-08] MEDS: CARVEDILOL 3.125 MG TABLET PO SCH (05:36)
[2019-06-08 06:03] LABS: BASOPHILS # (AUTO) 0.06 x10^3/uL (0-0.1); BASOPHILS % (AUTO) 1 % (0-1); EOSINOPHILS # (AUTO) 0.68 x10^3/uL (0-0.4); EOSINOPHILS % (AUTO) 9 % (1-7); LYMPHOCYTES # (AUTO) 1.39 x10^3/uL (1-3.4); LYMPHOCYTES % (AUTO) 19 % (22-44); MD NO; MEAN CORPUSCULAR HEMOGLOBIN 32.5 pg (27.5-34.5); MEAN CORPUSCULAR HGB CONC 32.7 g/dL (33.2-36.2); MEAN CORPUSCULAR VOLUME 99.5 fL (81-97); MEAN PLATELET VOLUME 8.4 fL (7.4-10.4); MONOCYTES # (AUTO) 0.67 x10^3/uL (0.2-0.8); MONOCYTES % (AUTO) 9 % (2-9); NEUTROPHILS # (AUTO) 4.66 x10^3/uL (1.8-6.8); NEUTROPHILS % (AUTO) 63 % (42-75); PLATELET COUNT 320 x10^3/uL (130-400); RED BLOOD COUNT 4.79 x10^6/uL (4.38-5.82); RED CELL DISTRIBUTION WIDTH 14.6 % (9.4-14.8)
[2019-06-08 06:07] LABS: CHLORIDE 98 mmol/L (98-107)
[2019-06-08 06:13] LABS: ANION GAP 4 mmol/L (5-15); CALCIUM 9.2 mg/dL (8.5-10.1); CREATININE 1.01 mg/dL (0.7-1.3)
[2019-06-08] MEDS: INSULIN LISPRO 100 UNITS/ML, PEN SQ-INSULIN SCH ×2 (07:00→11:00)
[2019-06-08 07:49] VITALS: BP 104/75
[2019-06-08] MEDS: FUROSEMIDE 40 MG TABLET PO SCH (09:03)
[2019-06-08] MEDS: POTASSIUM CHLORIDE 20 MEQ TAB.ER.PRT PO SCH (09:03)
[2019-06-08] MEDS: LISINOPRIL 10 MG TABLET PO SCH (09:03)
[2019-06-08] MEDS: ASPIRIN 81 MG TABLET EC PO SCH (09:03)
[2019-06-08] MEDS: SPIRONOLACTONE 25 MG TABLET PO SCH (09:03)
[2019-06-08] MEDS: METOLAZONE 2.5 MG TABLET PO SCH (09:03)
[2019-06-08] MEDS: ERTAPENEM 1 GM in SODIUM CHLORIDE 0.9% 50 ML IV SCH (11:13)
[2019-06-08] MEDS ORDERED: ACET325T26 PO (11:40)
[2019-06-08] MEDS ORDERED: ERTA1VIA4 IV (11:40)
[2019-06-08] MEDS ORDERED: LISI-167 PO (11:40)
[2019-06-08] MEDS ORDERED: CARV3.1212 PO (11:40)
[2019-06-08] MEDS ORDERED: SPIR25TA PO (11:40)
[2019-06-08] MEDS ORDERED: METO2.5T PO (11:40)
[2019-06-08 13:41] VITALS: BP 99/65
== END 2019-06-08 14:18 | disposition home or self-care (01) | DRG 871 ==
LOC: ED 20:45 → EDIP 22:16 → 3WST 23:30 → 3E 05-29 11:21 → 4WST 05-30 12:59
PROVIDERS: ADMIT Internal Medicine; ATTEND Hospitalist
PROC: 5A09357 Assistance with Respiratory Ventilation, Less than 24 Consecutive Hours, Continuous Positive Airway Pressure (ICD-10-PCS; 2019-05-30)
PROC: 0W9G3ZZ Drainage of Peritoneal Cavity, Percutaneous Approach (ICD-10-PCS; principal; 2019-05-31)
PROC: 5A09357 Assistance with Respiratory Ventilation, Less than 24 Consecutive Hours, Continuous Positive Airway Pressure (ICD-10-PCS; 2019-05-31)
PROC: 5A09357 Assistance with Respiratory Ventilation, Less than 24 Consecutive Hours, Continuous Positive Airway Pressure (ICD-10-PCS; 2019-06-01)
PROC: 5A09357 Assistance with Respiratory Ventilation, Less than 24 Consecutive Hours, Continuous Positive Airway Pressure (ICD-10-PCS; 2019-06-02)
PROC: 5A09357 Assistance with Respiratory Ventilation, Less than 24 Consecutive Hours, Continuous Positive Airway Pressure (ICD-10-PCS; 2019-06-04)
PROC: 0R9J3ZZ Drainage of Right Shoulder Joint, Percutaneous Approach (ICD-10-PCS; 2019-06-04)
PROC: 02HV33Z Insertion of Infusion Device into Superior Vena Cava, Percutaneous Approach (ICD-10-PCS; 2019-06-07)
PROC: B548ZZA Ultrasonography of Superior Vena Cava, Guidance (ICD-10-PCS; 2019-06-07)
DX: A41.2 Sepsis due to unspecified staphylococcus (principal); I50.43 Acute on chronic combined systolic (congestive) and diastolic (congestive) heart failure; E87.1 Hypo-osmolality and hyponatremia; E87.3 Alkalosis; I42.8 Other cardiomyopathies; M00.9 Pyogenic arthritis, unspecified; R18.8 Other ascites; E11.9 Type 2 diabetes mellitus without complications; E66.9 Obesity, unspecified; E78.5 Hyperlipidemia, unspecified; E87.6 Hypokalemia; I11.0 Hypertensive heart disease with heart failure; I25.10 Atherosclerotic heart disease of native coronary artery without angina pectoris; I27.20 Pulmonary hypertension, unspecified; M75.91 Shoulder lesion, unspecified, right shoulder; Z03.818 Encounter for observation for suspected exposure to other biological agents ruled out; Z72.0 Tobacco use; Z78.9 Other specified health status; Z79.899 Other long term (current) drug therapy; Z80.0 Family history of malignant neoplasm of digestive organs; Z91.14 Patient's other noncompliance with medication regimen; Z91.19 Patient's noncompliance with other medical treatment and regimen; Z95.810 Presence of automatic (implantable) cardiac defibrillator; Z68.37 Body mass index [BMI] 37.0-37.9, adult
CPT/HCPCS: 36415; 73030; 77002; 83986; 84145; 87400; 89051; 99285; J3490; 36573; 49083; 71045; 76700; 80048; 80053; 81003; 82962; 83880; 84484; 85025; 85610; 87040; 87070; 87075; 87077; 87147; 87186; 87205; 93005; 93306; 93312; 93325; G0378; J0690; J1335; J1650; J1940; J2704; J3370; C1751; J1815; J7040

== ENCOUNTER 2019-10-16 10:39 | Emergency (ER) | payer MEDICAID ==
[~2019-10-16] VITALS: Ht 165.1 cm; Wt 104.9 kg
[~2019-10-16 10:39] MED LIST changes: +ACET325T26 PO; +ERTA1VIA4 IV; +METO2.5T PO; +SPIR25TA PO
--- NOTE | 2019-10-16 11:00 | NUR ---
PT REPORTS INCREASE SWELLING IN LEGS AND ABDOMEN, AND SOB, HAS CHF CURRENTLY ON LASIX. PLACED ON CARDIAC AND VITALS MONITORS. FALL PRECAUTIONS IN PLACE, CALL LIGHT WITHIN REACH.
[2019-10-16 11:35] LABS: BASOPHILS # (AUTO) 0.05 x10^3/uL (0-0.1); BASOPHILS % (AUTO) 1 % (0-1); EOSINOPHILS # (AUTO) 0.49 x10^3/uL (0-0.4); EOSINOPHILS % (AUTO) 8 % (1-7); LYMPHOCYTES # (AUTO) 1.11 x10^3/uL (1-3.4); LYMPHOCYTES % (AUTO) 19 % (22-44); MD NO; MEAN CORPUSCULAR HEMOGLOBIN 33.3 pg (27.5-34.5); MEAN CORPUSCULAR HGB CONC 33.1 g/dL (33.2-36.2); MEAN CORPUSCULAR VOLUME 100.8 fL (81-97); MEAN PLATELET VOLUME 8.6 fL (7.4-10.4); MONOCYTES % (AUTO) 9 % (2-9); NEUTROPHILS # (AUTO) 3.71 x10^3/uL (1.8-6.8); NEUTROPHILS % (AUTO) 63 % (42-75); PLATELET COUNT 173 x10^3/uL (130-400); RED CELL DISTRIBUTION WIDTH 14.6 % (9.4-14.8)
[2019-10-16] MEDS ORDERED: LIDOCAINE 1%, 10ML ONE (11:40)
[2019-10-16 11:43] LABS: ALBUMIN 3.4 g/dL (3.4-5.0); ANION GAP 6 mmol/L (5-15); CALCIUM 8.6 mg/dL (8.5-10.1); CHLORIDE 117 mmol/L (98-107)
--- NOTE | 2019-10-16 11:46 | NUR ---
TRANSPORTED TO IR FOR PARACENTESIS.
[2019-10-16 12:30] VITALS: BP 122/94
--- NOTE | 2019-10-16 12:31 | NUR ---
PT BACK FROM PARACENTESIS, VSS. FALL PRECAUTIONS IN PLACE. CALL LIGHT AT REACH.
== END 2019-10-16 13:17 | disposition home or self-care (01) ==
LOC: ED 11:06
DX: I50.9 Heart failure, unspecified (principal); R06.02 Shortness of breath; M79.89 Other specified soft tissue disorders
CPT/HCPCS: 36415; 49083; 80048; 82040; 83880; 85025; 93005; 99285; J3490